=== PATIENT | male | born 1950 | race Caucasian/White ===

== ENCOUNTER → 2019-03-06 13:43 | Outpatient (CLI) | payer MEDICARE, OTHER, SELFPAY ==
--- NOTE | 2019-03-06 | DI.US.S_ITS ---
PROCEDURE: US ABD AORTA ANEURYSM SCREEN INDICATIONS: SCREEN TECHNIQUE: Real time scanning was performed of the aorta and iliac arteries, with image documentation. COMPARISON: None. FINDINGS: Abdominal aorta: The proximal abdominal aorta cannot be evaluated as the aorta was obscured by overlying bowel gas. Imaged mid-aorta measures 2.0 cm anteroposterior by 1.8 cm transverse. Imaged distal aortic diameter is 1.5 cm anteroposterior Iliac arteries: Imaged proximal right common iliac artery measures 0.9 cm anteroposterior. Imaged proximal left common iliac artery measures 1.0 cm anteroposterior. IMPRESSION: The proximal abdominal aorta could not be evaluated by ultrasound as the aorta was obscured by overlying bowel gas. The remainder of the imaged mid and distal abdominal aorta, as well as the bilateral proximal common iliac arteries, demonstrate no evidence of aneurysm by ultrasound. Consider CT if there is continued clinical concern. Dictated by: Rojelio José M.D. on 03/06/2019 at 15:55 Approved by: Rojelio José M.D. on 03/06/2019 at 17:04
== END ==
PROVIDERS: PCP Internal Medicine; Visit Provider Internal Medicine
DX: Z13.6 Encounter for screening for cardiovascular disorders (principal)
CPT/HCPCS: 76706

== ENCOUNTER 2021-02-21 14:30 | Outpatient (RCR) | payer MEDICARE, OTHER, SELFPAY ==
--- NOTE | 2020-11-03 18:32 | PT.OIE ---
Current Diagnoses Other chronic pain (11/03/20) Pain in left shoulder (11/03/20) Abnormal posture (11/03/20) Weakness (11/03/20) Visit Care Team Role Provider Type Noel Eddy MD Primary Care Provider Non-Staff Specialty: Family Practice Address: [address] [place] [address], [id number] Email: Attending Provider Referring Provider Specialty: Address: Phone: Fax: Email: Physical Therapy Initial Evaluation PT-OP-A Visit Information Start: 11/02/20 18:24 Freq: Status: Active Protocol: Document 11/03/20 16:51 [facility] (Rec: 11/03/20 18:28 [facility] [id number]) Out-Patient Physical Therapy Visit Information Visit Information Visit Type Initial Evaluation Visit Start Time 16:51 Visit Stop Time 17:45 Total Visit Minutes 54 Visit Number 1 Number of HARP ACTION ASSEMBLER Visits 0 PT-OP-B Current Condition Start: 11/02/20 18:24 Freq: Status: Active Protocol: Document 11/03/20 16:51 [facility] (Rec: 11/03/20 18:28 [facility] [id number]) Current Condition History of Current Condition Onset Date May Current Complaints L shoulder History of Current Condition Pt was sent here by another therapist in [place] d/t mar. Pt injured his shoulder during a ski fall. He fell backwards d/t going up something that was too high, fell to his backwards to his back and slid down hill and his L pole got caught on a branch and flipped him around. His wrist strap came off his wrist and his elbow was sore and still a little sore after and shoulder was sore. he skiied another 1.5 hours because he could pull. He said crossing his arms when L arm is on top butr not when its on the bottom. He is going to be getting a MRI. 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 He did PT and it got better. this was about 25 years ago. He L AC about 50 years ago. No shoulder pain in L side until he did the ski injury . R side has has RC trimming & a little cartilage stuff and take off part of acromion. Prior Treatments and Tests PT for a few months Future Testing and Treatments Planned MRI not yet scheduled Treatment Goals Patient/Caregiver Goals shoulder to stop hurting, be able to lift arm comfortably PT-OP-C Subjective Start: 11/02/20 18:24 Freq: Status: Active Protocol: Document 11/03/20 16:51 [facility] (Rec: 11/03/20 18:28 [facility] [id number]) Patient Questionnaires Quick Dash- Upper Extremity Quick Dash UE Score 31.8 OP-PT Pain Assessment Location L shoulder Pain Location Details L scap along spine, internal Intensity 2 Scale Used 7 w/movement Description Aching,Stabbing,With Movement Frequency Daily Pain Duration sharp part slowly goes away then it aches more than its norm Radiating Location pain in post lat brachium Pain Aggravating Factors ADL's,Lifting Other Pain Aggravating Factors pull arm back90/90 ER, in AM Pain Alleviating Factors Heat,Inactivity PT-OP-F Manual Assessment Start: 11/02/20 18:24 Freq: Status: Active Protocol: Document 11/03/20 16:51 [facility] (Rec: 11/03/20 18:28 [facility] [id number]) Manual Assessments Soft Tissue Assessment Soft Tissue Mobility Assessment L pec, UT, supraspinatsu and biceps tendon L PT-OP-J Posture/Palpation/Skin Start: 11/02/20 18:24 Freq: Status: Active Protocol: Document 11/03/20 16:51 [facility] (Rec: 11/03/20 18:28 [facility] [id number]) Posture Evaluation Comments Posture Comments inc kyphosis w/fwd head & shoudlers PT-OP-K Range of Motion Start: 11/02/20 18:24 Freq: Status: Active Protocol: Document 11/03/20 16:51 [facility] (Rec: 11/03/20 18:28 [facility] [id number]) Shoulder Goniometric Range of Motion Shoulder Right Active Flexion 150 Extension 51 Abduction 162 External Rotation at 90 degrees 74 Abduction External Rotation at 0 degrees Abduction 50 Internal Rotation Behind Back (text) T10 Left Active Flexion 128 Extension 41 Abduction 131 External Rotation at 90 degrees 57 Abduction External Rotation at 0 degrees Abduction 21 Internal Rotation Behind Back (text) L2 PT-OP-L Special Tests Start: 11/02/20 18:24 Freq: Status: Active Protocol: Document 11/03/20 16:51 [facility] (Rec: 11/03/20 18:28 [facility] [id number]) Special Tests Shoulder Special Tests Sulcus Test Results neg L Gonzalez Charly Impingement Test Results positive L Empty Can Test Results positive L AC Joint Compression Test Results mild pain L PT-OP-M Strength Start: 11/02/20 18:24 Freq: Status: Active Protocol: Document 11/03/20 16:51 [facility] (Rec: 11/03/20 18:28 [facility] [id number]) Shoulder Strength Shoulder Manual Muscle Testing Right Flexion 5 Normal Extension 5 Normal Abduction (C5) 5 Normal External Rotation 5 Normal Internal Rotation 5 Normal Horizontal Abduction 5 Normal Horizontal Adduction 5 Normal Left Flexion 4 Good Extension 4+ Good+ Abduction (C5) 4+ Good+ External Rotation 3+ Fair+ Internal Rotation 4+ Good+ Horizontal Abduction 4 Good Horizontal Adduction 4 Good PT-OP-Q Treatments Start: 11/02/20 18:24 Freq: Status: Active Protocol: Document 11/03/20 16:51 [facility] (Rec: 11/03/20 18:28 [facility] [id number]) Self-Care/Home Management Treatment Education Other Education discussed PT plan that since already done PT without much success for dec pain, plan tot try 1x/week to focus on manual to dec pain and edu re: impingment syndrome and shoulder mechanics & mm. Use of model also. Edu re: 1 pillow only under neck when sleeping or only enough to keep head in neutral. Discussed likelihood of supraspinatus involvement based on testing PT-OP-T Assessment and Plan Start: 11/02/20 18:24 Freq: Status: Active Protocol: Document 11/03/20 16:51 [facility] (Rec: 11/03/20 18:28 [facility] [id number]) Physical Therapy Assessment Rehab Potential Rehabilitation Potential Fair Evaluation Complexity Number of Personal Factors/Comorbidities 3 or More Number of Body Systems Impaired 4 or More Clinical Presentation at Evaluation Evolving Impairments Impairments Activity Tolerance,Functional Activities,Functional Mobility ,Pain,Posture,ROM,Soft Tissue Mobility,Strength Goals quickdash Impairment 31.8 Correction Goal (LTG) Pt will imrpove score to no greater than 10 to show improved functional ability LTG Duration 01/04/21 activies Short Term Goal (STG) Pt will be able to wake up without signficiant pain. STG Duration 12/04/20 Correction Goal (LTG) Pt will be able to do all ADLs like dressing w/o inc pain. LTG Duration 01/04/21 strength Short Term Goal (STG) pt will be indep w/appropriate HEP for posture and stability . STG Duration 12/04/20 Entry Level Marketing Assistant Goal (LTG) pt will have at 5/5 MMT for all planes for L shoulder along w/at least 4/5 EFT to show imrpoved stability in order to allow full return to activites without pain. LTG Duration 01/04/21 ROM Short Term Goal (STG) Pt will improve ROM in all planes by 10 deg. STG Duration 12/04/20 Entry Level Marketing Assistant Goal (LTG) pt will have full ROM as compared to R shoulder in order to allow pt to do typical overhead activties and ADLs. LTG Duration 01/04/21 Assessment Summary Assessment Pt presents w/L shoulder pain after an injury skiing 5 months ago where his arm was pulled by the his pole contacting a tree after falling. 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 He is getting MRI soon which will give further imaging as he has tried PT already w/o significant improvement. He would benefit from skilled PT to work on manual treatment and appropriate exercise prescription in order to dec his pain along w/improve his mobility and posture. Physical Therapy Plan Frequency and Duration Frequency of Treatment 1-2x/week Duration of Treatment 2 months Plan of Care Start Date 11/03/20 Plan of Care End Date 01/04/21 Therapeutic Interventions Therapeutic Interventions Aquatic Therapy,Home Exercise Program,Joint Mobilizations, Manual Therapy,Neuromuscular Re-education,Patient/Caregiver Education,Self-Care/Home Management,Soft Tissue Mobilization,Taping, Therapeutic Activities, Therapeutic Exercises Modalities Cold Pack/Ice Massage,Electric Stimulation,Hot Packs, Infrared Therapy,Ultrasound Next Visit Focus/Plan Next Note Type Treatment Note Next Visit Plan sleep posture, PNF, manual for ribcage mobility, manual for shoulder joint ROM
--- NOTE | 2020-11-03 18:32 | PT.OPPOC ---
Physical, Occupational & Speech Therapy At [facility] Current Diagnoses Other chronic pain (11/03/20) Pain in left shoulder (11/03/20) Abnormal posture (11/03/20) Weakness (11/03/20) Visit Care Team Role Provider Type Noel Eddy MD Primary Care Provider Non-Staff Specialty: [facility] Address: [address] [place] [address], [id number] Email: Attending Provider Referring Provider Specialty: Address: Phone: Fax: Email: Plan Of Care PT-OP-T Assessment and Plan Start: 11/02/20 18:24 Freq: Status: Active Protocol: Document 11/03/20 16:51 [facility] (Rec: 11/03/20 18:28 [facility] [id number]) Physical Therapy Assessment Rehab Potential Rehabilitation Potential Fair Evaluation Complexity Number of Personal Factors/Comorbidities 3 or More Number of Body Systems Impaired 4 or More Clinical Presentation at Evaluation Evolving Impairments Impairments Activity Tolerance,Functional Activities,Functional Mobility ,Pain,Posture,ROM,Soft Tissue Mobility,Strength Goals quickdash Impairment 31.8 Gang Rider Goal (LTG) Pt will imrpove score to no greater than 10 to show improved functional ability LTG Duration 01/04/21 activies Short Term Goal (STG) Pt will be able to wake up without signficiant pain. STG Duration 12/04/20 Gang Rider Goal (LTG) Pt will be able to do all ADLs like dressing w/o inc pain. LTG Duration 01/04/21 strength Short Term Goal (STG) pt will be indep w/appropriate HEP for posture and stability . STG Duration 12/04/20 Gang Rider Goal (LTG) pt will have at 5/5 MMT for all planes for L shoulder along w/at least 4/5 EFT to show imrpoved stability in order to allow full return to activites without pain. LTG Duration 01/04/21 ROM Short Term Goal (STG) Pt will improve ROM in all planes by 10 deg. STG Duration 12/04/20 Gang Rider Goal (LTG) pt will have full ROM as compared to R shoulder in order to allow pt to do typical overhead activties and ADLs. LTG Duration 01/04/21 Assessment Summary Assessment Pt presents w/L shoulder pain after an injury skiing 5 months ago where his arm was pulled by the his pole contacting a tree after falling. 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 He is getting MRI soon which will give further imaging as he has tried PT already w/o significant improvement. He would benefit from skilled PT to work on manual treatment and appropriate exercise prescription in order to dec his pain along w/improve his mobility and posture. Physical Therapy Plan Frequency and Duration Frequency of Treatment 1-2x/week Duration of Treatment 2 months Plan of Care Start Date 11/03/20 Plan of Care End Date 01/04/21 Therapeutic Interventions Therapeutic Interventions Aquatic Therapy,Home Exercise Program,Joint Mobilizations, Manual Therapy,Neuromuscular Re-education,Patient/Caregiver Education,Self-Care/Home Management,Soft Tissue Mobilization,Taping, Therapeutic Activities, Therapeutic Exercises Modalities Cold Pack/Ice Massage,Electric Stimulation,Hot Packs, Infrared Therapy,Ultrasound Next Visit Focus/Plan Next Note Type Treatment Note Next Visit Plan sleep posture, PNF, manual for ribcage mobility, manual for shoulder joint ROM Plan of Care Dates Plan of Care Start Date 11/03/20 Plan of Care End Date 01/04/21 Electronically Signed by: Cristina Bauman, PT 11/03/20 7216 Please Sign and Return: I have reviewed this Plan of Care and certify that the skilled therapy services above are required to meet the patient?s needs. Physician Signature Date Printed Name and Credentials Clinical Instructor Signature Printed Name and Credentials
--- NOTE | 2020-11-08 18:02 | PT.OTN ---
Current Diagnoses Other chronic pain (11/08/20) Pain in left shoulder (11/08/20) Abnormal posture (11/08/20) Weakness (11/08/20) Physical Therapy Treatment Note PT-OP-A Visit Information Start: 11/02/20 18:24 Freq: Status: Active Protocol: Document 11/08/20 14:34 [facility] (Rec: 11/08/20 18:02 [facility] [id number]) Out-Patient Physical Therapy Visit Information Visit Information Visit Type Treatment Note Visit Start Time 14:32 Visit Stop Time 15:15 Total Visit Minutes 43 Visit Number 2 Number of VACUUM CLOSING MACHINE OPERATOR Visits 0 PT-OP-B Current Condition Start: 11/02/20 18:24 Freq: Status: Active Protocol: Document 11/03/20 16:51 [facility] (Rec: 11/03/20 18:28 [facility] [id number]) Current Condition History of Current Condition Onset Date May Current Complaints L shoulder History of Current Condition Pt was sent here by another therapist in [place] d/t mar. Pt injured his shoulder during a ski fall. He fell backwards d/t going up something that was too high, fell to his backwards to his back and slid down hill and his L pole got caught on a branch and flipped him around. His wrist strap came off his wrist and his elbow was sore and still a little sore after and shoulder was sore. he skiied another 1.5 hours because he could pull. He said crossing his arms when L arm is on top butr not when its on the bottom. He is going to be getting a MRI. 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 He did PT and it got better. this was about 25 years ago. He L AC about 50 years ago. No shoulder pain in L side until he did the ski injury . R side has has RC trimming & a little cartilage stuff and take off part of acromion. Prior Treatments and Tests PT for a few months Future Testing and Treatments Planned MRI not yet scheduled Treatment Goals Patient/Caregiver Goals shoulder to stop hurting, be able to lift arm comfortably PT-OP-C Subjective Start: 11/02/20 18:24 Freq: Status: Active Protocol: Document 11/08/20 14:34 [facility] (Rec: 11/08/20 18:02 [facility] [id number]) OP-PT Subjective Patient Comments Patient Comments Pt reports no change since eval PT-OP-F Manual Assessment Start: 11/02/20 18:24 Freq: Status: Active Protocol: Document 11/03/20 16:51 [facility] (Rec: 11/03/20 18:28 [facility] [id number]) Manual Assessments Soft Tissue Assessment Soft Tissue Mobility Assessment L pec, UT, supraspinatsu and biceps tendon L PT-OP-J Posture/Palpation/Skin Start: 11/02/20 18:24 Freq: Status: Active Protocol: Document 11/03/20 16:51 [facility] (Rec: 11/03/20 18:28 [facility] [id number]) Posture Evaluation Comments Posture Comments inc kyphosis w/fwd head & shoudlers PT-OP-K Range of Motion Start: 11/02/20 18:24 Freq: Status: Active Protocol: Document 11/03/20 16:51 [facility] (Rec: 11/03/20 18:28 [facility] [id number]) Shoulder Goniometric Range of Motion Shoulder Right Active Flexion 150 Extension 51 Abduction 162 External Rotation at 90 degrees 74 Abduction External Rotation at 0 degrees Abduction 50 Internal Rotation Behind Back (text) T10 Left Active Flexion 128 Extension 41 Abduction 131 External Rotation at 90 degrees 57 Abduction External Rotation at 0 degrees Abduction 21 Internal Rotation Behind Back (text) L2 PT-OP-L Special Tests Start: 11/02/20 18:24 Freq: Status: Active Protocol: Document 11/03/20 16:51 [facility] (Rec: 11/03/20 18:28 [facility] [id number]) Special Tests Shoulder Special Tests Sulcus Test Results neg L Gonzalez Charly Impingement Test Results positive L Empty Can Test Results positive L AC Joint Compression Test Results mild pain L PT-OP-M Strength Start: 11/02/20 18:24 Freq: Status: Active Protocol: Document 11/03/20 16:51 [facility] (Rec: 11/03/20 18:28 [facility] [id number]) Shoulder Strength Shoulder Manual Muscle Testing Right Flexion 5 Normal Extension 5 Normal Abduction (C5) 5 Normal External Rotation 5 Normal Internal Rotation 5 Normal Horizontal Abduction 5 Normal Horizontal Adduction 5 Normal Left Flexion 4 Good Extension 4+ Good+ Abduction (C5) 4+ Good+ External Rotation 3+ Fair+ Internal Rotation 4+ Good+ Horizontal Abduction 4 Good Horizontal Adduction 4 Good PT-OP-Q Treatments Start: 11/02/20 18:24 Freq: Status: Active Protocol: Document 11/08/20 14:34 [facility] (Rec: 11/08/20 18:02 [facility] [id number]) Therapeutic Exercises Sidelying Exercises open book Sidelying Exercise Name w/arm at side Side bilateral Reps/Minutes 10 Therapeutic Activity Therapeutic Activity sleep posture Comments s/l and supine options w/ pillows and towels for support Manual Therapy Treatment Soft Tissue Mobilization lats Body Location L lats & teres Mobilization Type Rolling,Strumming Intensity/Depth Moderate UT, LS, Scalenes, SCM Body Location L Mobilization Type Rolling,Strumming,Sustained Pressure Intensity/Depth Moderate Comments w/ant elevation/post dep Joint Mobilizations SC Joint L Direction INf FM AC Direction PA FM tspine Joint T4 R transverse glide FM ribs Joint 7 cadual FM PT-OP-T Assessment and Plan Start: 11/02/20 18:24 Freq: Status: Active Protocol: Document 11/08/20 14:34 [facility] (Rec: 11/08/20 18:02 [facility] [id number]) Physical Therapy Assessment Goals quickdash Impairment 31.8 Senior Credit Officer Goal (LTG) Pt will imrpove score to no greater than 10 to show improved functional ability LTG Duration 01/04/21 activies Short Term Goal (STG) Pt will be able to wake up without signficiant pain. STG Duration 12/04/20 Mcc Goal (LTG) Pt will be able to do all ADLs like dressing w/o inc pain. LTG Duration 01/04/21 strength Short Term Goal (STG) pt will be indep w/appropriate HEP for posture and stability . STG Duration 12/04/20 Mcc Goal (LTG) pt will have at 5/5 MMT for all planes for L shoulder along w/at least 4/5 EFT to show imrpoved stability in order to allow full return to activites without pain. LTG Duration 01/04/21 ROM Short Term Goal (STG) Pt will improve ROM in all planes by 10 deg. STG Duration 12/04/20 Mcc Goal (LTG) pt will have full ROM as compared to R shoulder in order to allow pt to do typical overhead activties and ADLs. LTG Duration 01/04/21 Assessment Summary Assessment Pt reported feeling looser after manual treatment. He had improved ability to scap depress after manual treatment . He has signifciant ribcage limitations that likely affect his ability to have scap glide properly during overhead motions which inc pain. Physical Therapy Plan Frequency and Duration Frequency of Treatment 1-2x/week Duration of Treatment 2 months Plan of Care Start Date 11/03/20 Plan of Care End Date 01/04/21 Next Visit Focus/Plan Next Note Type Treatment Note Next Visit Plan PNF, manual for ribcage mobility, manual for shoulder joint ROM
--- NOTE | 2020-11-17 17:51 | PT.OTN ---
Current Diagnoses Other chronic pain (11/17/20) Pain in left shoulder (11/17/20) Abnormal posture (11/17/20) Weakness (11/17/20) Physical Therapy Treatment Note PT-OP-A Visit Information Start: 11/02/20 18:24 Freq: Status: Active Protocol: Document 11/17/20 17:46 [facility] (Rec: 11/17/20 17:51 [facility] [id number]) Out-Patient Physical Therapy Visit Information Visit Information Visit Type Treatment Note Visit Start Time 16:44 Visit Stop Time 17:43 Total Visit Minutes 59 Visit Number 3 Number of PUBLIC SERVICES ASSISTANT Visits 0 PT-OP-B Current Condition Start: 11/02/20 18:24 Freq: Status: Active Protocol: Document 11/03/20 16:51 [facility] (Rec: 11/03/20 18:28 [facility] [id number]) Current Condition History of Current Condition Onset Date May Current Complaints L shoulder History of Current Condition Pt was sent here by another therapist in [place] d/t mar. Pt injured his shoulder during a ski fall. He fell backwards d/t going up something that was too high, fell to his backwards to his back and slid down hill and his L pole got caught on a branch and flipped him around. His wrist strap came off his wrist and his elbow was sore and still a little sore after and shoulder was sore. he skiied another 1.5 hours because he could pull. He said crossing his arms when L arm is on top butr not when its on the bottom. He is going to be getting a MRI. 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 He did PT and it got better. this was about 25 years ago. He L AC about 50 years ago. No shoulder pain in L side until he did the ski injury . R side has has RC trimming & a little cartilage stuff and take off part of acromion. Prior Treatments and Tests PT for a few months Future Testing and Treatments Planned MRI not yet scheduled Treatment Goals Patient/Caregiver Goals shoulder to stop hurting, be able to lift arm comfortably PT-OP-C Subjective Start: 11/02/20 18:24 Freq: Status: Active Protocol: Document 11/17/20 17:46 [facility] (Rec: 11/17/20 17:51 [facility] [id number]) OP-PT Subjective Patient Comments Patient Comments pt reports he was sore after last session but the next day felt looser PT-OP-F Manual Assessment Start: 11/02/20 18:24 Freq: Status: Active Protocol: Document 11/03/20 16:51 [facility] (Rec: 11/03/20 18:28 [facility] [id number]) Manual Assessments Soft Tissue Assessment Soft Tissue Mobility Assessment L pec, UT, supraspinatsu and biceps tendon L PT-OP-J Posture/Palpation/Skin Start: 11/02/20 18:24 Freq: Status: Active Protocol: Document 11/03/20 16:51 [facility] (Rec: 11/03/20 18:28 [facility] [id number]) Posture Evaluation Comments Posture Comments inc kyphosis w/fwd head & shoudlers PT-OP-K Range of Motion Start: 11/02/20 18:24 Freq: Status: Active Protocol: Document 11/03/20 16:51 [facility] (Rec: 11/03/20 18:28 [facility] [id number]) Shoulder Goniometric Range of Motion Shoulder Right Active Flexion 150 Extension 51 Abduction 162 External Rotation at 90 degrees 74 Abduction External Rotation at 0 degrees Abduction 50 Internal Rotation Behind Back (text) T10 Left Active Flexion 128 Extension 41 Abduction 131 External Rotation at 90 degrees 57 Abduction External Rotation at 0 degrees Abduction 21 Internal Rotation Behind Back (text) L2 PT-OP-L Special Tests Start: 11/02/20 18:24 Freq: Status: Active Protocol: Document 11/03/20 16:51 [facility] (Rec: 11/03/20 18:28 [facility] [id number]) Special Tests Shoulder Special Tests Sulcus Test Results neg L Gonzalez Charly Impingement Test Results positive L Empty Can Test Results positive L AC Joint Compression Test Results mild pain L PT-OP-M Strength Start: 11/02/20 18:24 Freq: Status: Active Protocol: Document 11/03/20 16:51 [facility] (Rec: 11/03/20 18:28 [facility] [id number]) Shoulder Strength Shoulder Manual Muscle Testing Right Flexion 5 Normal Extension 5 Normal Abduction (C5) 5 Normal External Rotation 5 Normal Internal Rotation 5 Normal Horizontal Abduction 5 Normal Horizontal Adduction 5 Normal Left Flexion 4 Good Extension 4+ Good+ Abduction (C5) 4+ Good+ External Rotation 3+ Fair+ Internal Rotation 4+ Good+ Horizontal Abduction 4 Good Horizontal Adduction 4 Good PT-OP-Q Treatments Start: 11/02/20 18:24 Freq: Status: Active Protocol: Document 11/17/20 17:46 [facility] (Rec: 11/17/20 17:51 [facility] [id number]) Therapeutic Exercises Sidelying Exercises open book Sidelying Exercise Name w/arm at sidex 5 ; w/Habd x12 Side left Standing Exercises wall posture Standing Exercise Name roll up w/shoulder ext Side bilateral Reps/Minutes 8 roll ups and 2 holds x1 min Manual Therapy Treatment Soft Tissue Mobilization lats Body Location L lats & teres & post delt & infraspinatus Mobilization Type Rolling,Strumming Intensity/Depth Moderate UT, LS, Scalenes, SCM Body Location L Mobilization Type Rolling,Strumming,Sustained Pressure Intensity/Depth Moderate Comments w/ant elevation/post dep Joint Mobilizations scapthoracic Joint L Direction inf & med glide SC Joint L Direction INf FM AC Direction gapping FM tspine Joint T4 R transverse glide & UPA R FM ribs Joint 1& 2& 7 cadual FM PT-OP-T Assessment and Plan Start: 11/02/20 18:24 Freq: Status: Active Protocol: Document 11/17/20 17:46 [facility] (Rec: 11/17/20 17:51 [facility] [id number]) Physical Therapy Assessment Goals quickdash Impairment 31.8 Lead Slot Technician Goal (LTG) Pt will imrpove score to no greater than 10 to show improved functional ability LTG Duration 01/04/21 activies Short Term Goal (STG) Pt will be able to wake up without signficiant pain. STG Duration 12/04/20 Snf Goal (LTG) Pt will be able to do all ADLs like dressing w/o inc pain. LTG Duration 01/04/21 strength Short Term Goal (STG) pt will be indep w/appropriate HEP for posture and stability . STG Duration 12/04/20 Lead Slot Technician Goal (LTG) pt will have at 5/5 MMT for all planes for L shoulder along w/at least 4/5 EFT to show imrpoved stability in order to allow full return to activites without pain. LTG Duration 01/04/21 ROM Short Term Goal (STG) Pt will improve ROM in all planes by 10 deg. STG Duration 12/04/20 Lead Slot Technician Goal (LTG) pt will have full ROM as compared to R shoulder in order to allow pt to do typical overhead activties and ADLs. LTG Duration 01/04/21 Assessment Summary Assessment Pt had imrpoved PROM into flex and 90/90 ER w/manual treatment w/significant imrpovement into scap depression and retraction. Physical Therapy Plan Frequency and Duration Frequency of Treatment 1-2x/week Duration of Treatment 2 months Plan of Care Start Date 11/03/20 Plan of Care End Date 01/04/21 Next Visit Focus/Plan Next Note Type Treatment Note Next Visit Plan PNF, manual for ribcage mobility, manual for shoulder joint ROM
--- NOTE | 2020-12-01 15:34 | PT.OTN ---
Current Diagnoses Other chronic pain (12/01/20) Pain in left shoulder (12/01/20) Abnormal posture (12/01/20) Weakness (12/01/20) Physical Therapy Treatment Note PT-OP-A Visit Information Start: 11/02/20 18:24 Freq: Status: Active Protocol: Document 12/01/20 15:25 [facility] (Rec: 12/01/20 15:34 [facility] [id number]) Out-Patient Physical Therapy Visit Information Visit Information Visit Type Treatment Note Visit Start Time 11:18 Visit Stop Time 12:00 Total Visit Minutes 42 Visit Number 4 Number of SOLID TIRE FINISHER Visits 0 PT-OP-B Current Condition Start: 11/02/20 18:24 Freq: Status: Active Protocol: Document 11/03/20 16:51 [facility] (Rec: 11/03/20 18:28 [facility] [id number]) Current Condition History of Current Condition Onset Date May Current Complaints L shoulder History of Current Condition Pt was sent here by another therapist in [place] d/t mar. Pt injured his shoulder during a ski fall. He fell backwards d/t going up something that was too high, fell to his backwards to his back and slid down hill and his L pole got caught on a branch and flipped him around. His wrist strap came off his wrist and his elbow was sore and still a little sore after and shoulder was sore. he skiied another 1.5 hours because he could pull. He said crossing his arms when L arm is on top butr not when its on the bottom. He is going to be getting a MRI. 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 He did PT and it got better. this was about 25 years ago. He L AC about 50 years ago. No shoulder pain in L side until he did the ski injury . R side has has RC trimming & a little cartilage stuff and take off part of acromion. Prior Treatments and Tests PT for a few months Future Testing and Treatments Planned MRI not yet scheduled Treatment Goals Patient/Caregiver Goals shoulder to stop hurting, be able to lift arm comfortably PT-OP-C Subjective Start: 11/02/20 18:24 Freq: Status: Active Protocol: Document 12/01/20 15:25 [facility] (Rec: 12/01/20 15:34 [facility] [id number]) OP-PT Subjective Patient Comments Patient Comments Pt reports MRI report said possible labral tear and MD thinks possibly frozen shoulder. MD thinks his range has dec since last seeing him. Pt feels like since starting w/this therapist range has imrpoved. He will be getting a cortizone shot and saline flush by his MD PT-OP-F Manual Assessment Start: 11/02/20 18:24 Freq: Status: Active Protocol: Document 11/03/20 16:51 [facility] (Rec: 11/03/20 18:28 [facility] [id number]) Manual Assessments Soft Tissue Assessment Soft Tissue Mobility Assessment L pec, UT, supraspinatsu and biceps tendon L PT-OP-J Posture/Palpation/Skin Start: 11/02/20 18:24 Freq: Status: Active Protocol: Document 11/03/20 16:51 [facility] (Rec: 11/03/20 18:28 [facility] [id number]) Posture Evaluation Comments Posture Comments inc kyphosis w/fwd head & shoudlers PT-OP-K Range of Motion Start: 11/02/20 18:24 Freq: Status: Active Protocol: Document 11/03/20 16:51 [facility] (Rec: 11/03/20 18:28 [facility] [id number]) Shoulder Goniometric Range of Motion Shoulder Right Active Flexion 150 Extension 51 Abduction 162 External Rotation at 90 degrees 74 Abduction External Rotation at 0 degrees Abduction 50 Internal Rotation Behind Back (text) T10 Left Active Flexion 128 Extension 41 Abduction 131 External Rotation at 90 degrees 57 Abduction External Rotation at 0 degrees Abduction 21 Internal Rotation Behind Back (text) L2 PT-OP-L Special Tests Start: 11/02/20 18:24 Freq: Status: Active Protocol: Document 11/03/20 16:51 [facility] (Rec: 11/03/20 18:28 [facility] [id number]) Special Tests Shoulder Special Tests Sulcus Test Results neg L Gonzalez Charly Impingement Test Results positive L Empty Can Test Results positive L AC Joint Compression Test Results mild pain L PT-OP-M Strength Start: 11/02/20 18:24 Freq: Status: Active Protocol: Document 11/03/20 16:51 [facility] (Rec: 11/03/20 18:28 [facility] [id number]) Shoulder Strength Shoulder Manual Muscle Testing Right Flexion 5 Normal Extension 5 Normal Abduction (C5) 5 Normal External Rotation 5 Normal Internal Rotation 5 Normal Horizontal Abduction 5 Normal Horizontal Adduction 5 Normal Left Flexion 4 Good Extension 4+ Good+ Abduction (C5) 4+ Good+ External Rotation 3+ Fair+ Internal Rotation 4+ Good+ Horizontal Abduction 4 Good Horizontal Adduction 4 Good PT-OP-Q Treatments Start: 11/02/20 18:24 Freq: Status: Active Protocol: Document 12/01/20 15:25 [facility] (Rec: 12/01/20 15:34 [facility] [id number]) Therapeutic Exercises Sidelying Exercises open book Sidelying Exercise Name arm straight Side left Reps/Minutes 15 Sitting Exercises pullys Sitting Exercise Name flex, abd, scaption , IR Behind back standing Side bilateral Reps/Minutes 15 ea Comments comfortable range and avoid scap elevation Standing Exercises wall posture Standing Exercise Name roll up w/shoulder ext Side bilateral Reps/Minutes 6roll ups and 2 holds x1 min Manual Therapy Treatment Joint Mobilizations GH Direction post glide FM, inf glide FM, distraction FM, lat gappign FM PT-OP-T Assessment and Plan Start: 11/02/20 18:24 Freq: Status: Active Protocol: Document 12/01/20 15:25 [facility] (Rec: 12/01/20 15:34 [facility] [id number]) Physical Therapy Assessment Goals quickdash Impairment 31.8 Mcc Goal (LTG) Pt will imrpove score to no greater than 10 to show improved functional ability LTG Duration 01/04/21 activies Short Term Goal (STG) Pt will be able to wake up without signficiant pain. STG Duration 12/04/20 Animal Assistant Goal (LTG) Pt will be able to do all ADLs like dressing w/o inc pain. LTG Duration 01/04/21 strength Short Term Goal (STG) pt will be indep w/appropriate HEP for posture and stability . STG Duration 12/04/20 Animal Assistant Goal (LTG) pt will have at 5/5 MMT for all planes for L shoulder along w/at least 4/5 EFT to show imrpoved stability in order to allow full return to activites without pain. LTG Duration 01/04/21 ROM Short Term Goal (STG) Pt will improve ROM in all planes by 10 deg. STG Duration 12/04/20 Animal Assistant Goal (LTG) pt will have full ROM as compared to R shoulder in order to allow pt to do typical overhead activties and ADLs. LTG Duration 01/04/21 Assessment Summary Assessment pt requried cues w/all exercises today especially w/ wall posture and openbook exercise. Pt educated to stay in comrotable range w/will exercise and gradually inc as tolerated. Physical Therapy Plan Frequency and Duration Frequency of Treatment 1-2x/week Duration of Treatment 2 months Plan of Care Start Date 11/03/20 Plan of Care End Date 01/04/21 Next Visit Focus/Plan Next Note Type Treatment Note Next Visit Plan PNF, manual for ribcage mobility, manual for shoulder joint ROM
--- NOTE | 2020-12-08 18:47 | PT.OTN ---
Current Diagnoses Other chronic pain (12/08/20) Pain in left shoulder (12/08/20) Abnormal posture (12/08/20) Weakness (12/08/20) Physical Therapy Treatment Note PT-OP-A Visit Information Start: 11/02/20 18:24 Freq: Status: Active Protocol: Document 12/08/20 16:10 [facility] (Rec: 12/08/20 18:47 [facility] [id number]) Out-Patient Physical Therapy Visit Information Visit Information Visit Type Progress Note Visit Note 05/08 Visit Start Time 16:07 Visit Stop Time 16:50 Total Visit Minutes 43 Visit Number 5 Number of SIMULATION SPECIALIST Visits 0 PT-OP-B Current Condition Start: 11/02/20 18:24 Freq: Status: Active Protocol: Document 11/03/20 16:51 [facility] (Rec: 11/03/20 18:28 [facility] [id number]) Current Condition History of Current Condition Onset Date May Current Complaints L shoulder History of Current Condition Pt was sent here by another therapist in [place] d/t mar. Pt injured his shoulder during a ski fall. He fell backwards d/t going up something that was too high, fell to his backwards to his back and slid down hill and his L pole got caught on a branch and flipped him around. His wrist strap came off his wrist and his elbow was sore and still a little sore after and shoulder was sore. he skiied another 1.5 hours because he could pull. He said crossing his arms when L arm is on top butr not when its on the bottom. He is going to be getting a MRI. 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 He did PT and it got better. this was about 25 years ago. He L AC about 50 years ago. No shoulder pain in L side until he did the ski injury . R side has has RC trimming & a little cartilage stuff and take off part of acromion. Prior Treatments and Tests PT for a few months Future Testing and Treatments Planned MRI not yet scheduled Treatment Goals Patient/Caregiver Goals shoulder to stop hurting, be able to lift arm comfortably PT-OP-C Subjective Start: 11/02/20 18:24 Freq: Status: Active Protocol: Document 12/08/20 16:10 [facility] (Rec: 12/08/20 18:47 [facility] [id number]) OP-PT Subjective Patient Comments Patient Comments Pt reports signfiicant improvement in range over past couple weeks he feels and ovearll dec in pain. NOtes he doesn't have pain upon wakng anymore. PT-OP-F Manual Assessment Start: 11/02/20 18:24 Freq: Status: Active Protocol: Document 11/03/20 16:51 [facility] (Rec: 11/03/20 18:28 [facility] [id number]) Manual Assessments Soft Tissue Assessment Soft Tissue Mobility Assessment L pec, UT, supraspinatsu and biceps tendon L PT-OP-J Posture/Palpation/Skin Start: 11/02/20 18:24 Freq: Status: Active Protocol: Document 11/03/20 16:51 [facility] (Rec: 11/03/20 18:28 [facility] [id number]) Posture Evaluation Comments Posture Comments inc kyphosis w/fwd head & shoudlers PT-OP-K Range of Motion Start: 11/02/20 18:24 Freq: Status: Active Protocol: Document 12/08/20 16:10 [facility] (Rec: 12/08/20 18:47 [facility] [id number]) Shoulder Goniometric Range of Motion Shoulder Left Active Flexion 138 Extension 54 Abduction 150 External Rotation at 90 degrees 58 Abduction External Rotation at 0 degrees Abduction 41 Internal Rotation Behind Back (text) T11 PT-OP-L Special Tests Start: 11/02/20 18:24 Freq: Status: Active Protocol: Document 11/03/20 16:51 [facility] (Rec: 11/03/20 18:28 [facility] [id number]) Special Tests Shoulder Special Tests Sulcus Test Results neg L Gonzalez Charly Impingement Test Results positive L Empty Can Test Results positive L AC Joint Compression Test Results mild pain L PT-OP-M Strength Start: 11/02/20 18:24 Freq: Status: Active Protocol: Document 12/08/20 16:10 [facility] (Rec: 12/08/20 18:47 [facility] [id number]) Shoulder Strength Shoulder Manual Muscle Testing Left Flexion 5 Normal Extension 5 Normal Abduction (C5) 5 Normal Adduction 5 Normal External Rotation 4 Good Internal Rotation 5 Normal Horizontal Abduction 5 Normal Horizontal Adduction 5 Normal PT-OP-Q Treatments Start: 11/02/20 18:24 Freq: Status: Active Protocol: Document 12/08/20 16:10 [facility] (Rec: 12/08/20 18:47 [facility] [id number]) Therapeutic Exercises Sidelying Exercises open book Sidelying Exercise Name arm straight Side left Reps/Minutes 15 Standing Exercises stretches Standing Exercise Name doorway arms ext stretch, 90/ 90 corner pec stretch Side bilateral Reps/Minutes 1 min ea wall posture Standing Exercise Name roll up w/shoulder ext progress to 90/90 ER Side bilateral Reps/Minutes 2x w/ ext holds 2x15 90/90 ER Manual Therapy Treatment Soft Tissue Mobilization UT, LS, Scalenes, SCM Body Location L Mobilization Type Rolling,Strumming,Sustained Pressure Intensity/Depth Moderate Comments w/ant elevation/post dep Joint Mobilizations GH Joint L Direction post FM scapthoracic Joint L Direction inf & med glide Self-Care/Home Management Treatment Education Other Education edu re: progress & edu re: HEP exercises , edu PT cannot instruct pt re: shot and he should call to talk to office. Discussed point of shot is to dec inflammation. Edu ROM & strenght has imrpoved since starting PT w/this therapist PT-OP-T Assessment and Plan Start: 11/02/20 18:24 Freq: Status: Active Protocol: Document 12/08/20 16:10 [facility] (Rec: 12/08/20 18:47 [facility] [id number]) Physical Therapy Assessment Goals quickdash Impairment 31.8 Cleaner Touch Up Worker Goal (LTG) Pt will imrpove score to no greater than 10 to show improved functional ability 12/08-nt LTG Duration 02/07/21 activies Short Term Goal (STG) Pt will be able to wake up without signficiant pain. STG Duration achieved Long-Term Goal (LTG) Pt will be able to do all ADLs like dressing w/o inc pain. 12/08-significantly dec pain LTG Duration 02/07/21 strength Short Term Goal (STG) pt will be indep w/appropriate HEP for posture and stability . STG Duration progressing as needd Long-Term Goal (LTG) pt will have at 5/5 MMT for all planes for L shoulder along w/at least 4/5 EFT to show imrpoved stability in order to allow full return to activites without pain 12/08-signficiant improvement. LTG Duration 02/07/21 ROM Short Term Goal (STG) Pt will improve ROM in all planes by 10 deg. STG Duration achieved Long-Term Goal (LTG) pt will have full ROM as compared to R shoulder in order to allow pt to do typical overhead activties and ADLs. 12/08-improve LTG Duration 02/07/21 Assessment Summary Assessment Pt is making excellent progrss over the past 4 treatment sessions and has shown signficiant inc in ROM, strength and functional ability. He cont to have dec ROM with pain w/resistance and some ADLs and would beneift from cont therapy to address this. Printouts given of HEP with review today to help pt with stretches to cont to inc ROM. Physical Therapy Plan Frequency and Duration Frequency of Treatment 1-2x/week Duration of Treatment 2 months Plan of Care Start Date 12/08/20 Plan of Care End Date 02/07/21 Therapeutic Interventions Therapeutic Interventions Aquatic Therapy,Home Exercise Program,Joint Mobilizations, Manual Therapy,Neuromuscular Re-education,Patient/Caregiver Education,Self-Care/Home Management,Soft Tissue Mobilization,Taping, Therapeutic Activities, Therapeutic Exercises Modalities Cold Pack/Ice Massage,Electric Stimulation,Hot Packs, Infrared Therapy,Ultrasound Next Visit Focus/Plan Next Note Type Treatment Note Next Visit Plan PNF, manual for ribcage mobility, manual for shoulder joint ROM
--- NOTE | 2020-12-08 18:48 | PT.OPPOC ---
Physical, Occupational & Speech Therapy At [facility] Current Diagnoses Other chronic pain (12/08/20) Pain in left shoulder (12/08/20) Abnormal posture (12/08/20) Weakness (12/08/20) Visit Care Team Role Provider Type Noel Eddy MD Primary Care Provider Non-Staff Specialty: [facility] Address: [address] [place] [address], [id number] Email: Attending Provider Referring Provider Specialty: Address: Phone: Fax: Email: Plan Of Care PT-OP-T Assessment and Plan Start: 11/02/20 18:24 Freq: Status: Active Protocol: Document 12/08/20 16:10 [facility] (Rec: 12/08/20 18:47 [facility] [id number]) Physical Therapy Assessment Goals quickdash Impairment 31.8 Making Line Worker Goal (LTG) Pt will imrpove score to no greater than 10 to show improved functional ability 12/08-nt LTG Duration 02/07/21 activies Short Term Goal (STG) Pt will be able to wake up without signficiant pain. STG Duration achieved Usp Goal (LTG) Pt will be able to do all ADLs like dressing w/o inc pain. 12/08-significantly dec pain LTG Duration 02/07/21 strength Short Term Goal (STG) pt will be indep w/appropriate HEP for posture and stability . STG Duration progressing as needd Making Line Worker Goal (LTG) pt will have at 5/5 MMT for all planes for L shoulder along w/at least 4/5 EFT to show imrpoved stability in order to allow full return to activites without pain 12/08-signficiant improvement. LTG Duration 02/07/21 ROM Short Term Goal (STG) Pt will improve ROM in all planes by 10 deg. STG Duration achieved Usp Goal (LTG) pt will have full ROM as compared to R shoulder in order to allow pt to do typical overhead activties and ADLs. 12/08-improve LTG Duration 02/07/21 Assessment Summary Assessment Pt is making excellent progrss over the past 4 treatment sessions and has shown signficiant inc in ROM, strength and functional ability. He cont to have dec ROM with pain w/resistance and some ADLs and would beneift from cont therapy to address this. Printouts given of HEP with review today to help pt with stretches to cont to inc ROM. Physical Therapy Plan Frequency and Duration Frequency of Treatment 1-2x/week Duration of Treatment 2 months Plan of Care Start Date 12/08/20 Plan of Care End Date 02/07/21 Therapeutic Interventions Therapeutic Interventions Aquatic Therapy,Home Exercise Program,Joint Mobilizations, Manual Therapy,Neuromuscular Re-education,Patient/Caregiver Education,Self-Care/Home Management,Soft Tissue Mobilization,Taping, Therapeutic Activities, Therapeutic Exercises Modalities Cold Pack/Ice Massage,Electric Stimulation,Hot Packs, Infrared Therapy,Ultrasound Next Visit Focus/Plan Next Note Type Treatment Note Next Visit Plan PNF, manual for ribcage mobility, manual for shoulder joint ROM Plan of Care Dates Plan of Care Start Date 12/08/20 Plan of Care End Date 02/07/21 Electronically Signed by: Cristina Bauman, PT 12/08/20 [id number] Please Sign and Return: I have reviewed this Plan of Care and certify that the skilled therapy services above are required to meet the patient?s needs. Physician Signature Date Printed Name and Credentials Clinical Instructor Signature Printed Name and Credentials
--- NOTE | 2020-12-14 17:22 | PT.OTN ---
Current Diagnoses Other chronic pain (12/14/20) Pain in left shoulder (12/14/20) Abnormal posture (12/14/20) Weakness (12/14/20) Physical Therapy Treatment Note PT-OP-A Visit Information Start: 11/02/20 18:24 Freq: Status: Active Protocol: Document 12/14/20 17:05 [facility] (Rec: 12/14/20 17:22 [facility] [id number]) Out-Patient Physical Therapy Visit Information Visit Information Visit Type Treatment Note Visit Note 06/08 Visit Start Time 16:07 Visit Stop Time 16:48 Total Visit Minutes 41 Visit Number 6 Number of DIE CUTTER DIAMOND Visits 0 PT-OP-B Current Condition Start: 11/02/20 18:24 Freq: Status: Active Protocol: Document 11/03/20 16:51 [facility] (Rec: 11/03/20 18:28 [facility] [id number]) Current Condition History of Current Condition Onset Date May Current Complaints L shoulder History of Current Condition Pt was sent here by another therapist in [place] d/t mar. Pt injured his shoulder during a ski fall. He fell backwards d/t going up something that was too high, fell to his backwards to his back and slid down hill and his L pole got caught on a branch and flipped him around. His wrist strap came off his wrist and his elbow was sore and still a little sore after and shoulder was sore. he skiied another 1.5 hours because he could pull. He said crossing his arms when L arm is on top butr not when its on the bottom. He is going to be getting a MRI. 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 He did PT and it got better. this was about 25 years ago. He L AC about 50 years ago. No shoulder pain in L side until he did the ski injury . R side has has RC trimming & a little cartilage stuff and take off part of acromion. Prior Treatments and Tests PT for a few months Future Testing and Treatments Planned MRI not yet scheduled Treatment Goals Patient/Caregiver Goals shoulder to stop hurting, be able to lift arm comfortably PT-OP-C Subjective Start: 11/02/20 18:24 Freq: Status: Active Protocol: Document 12/14/20 17:05 [facility] (Rec: 12/14/20 17:22 [facility] [id number]) OP-PT Subjective Patient Comments Patient Comments Pt reports he decided to cancel his injection. Does feel like shoulder is getting looser. he did some exercises but did forget some too. Patient Reported Progress Improving PT-OP-F Manual Assessment Start: 11/02/20 18:24 Freq: Status: Active Protocol: Document 11/03/20 16:51 [facility] (Rec: 11/03/20 18:28 [facility] [id number]) Manual Assessments Soft Tissue Assessment Soft Tissue Mobility Assessment L pec, UT, supraspinatsu and biceps tendon L PT-OP-J Posture/Palpation/Skin Start: 11/02/20 18:24 Freq: Status: Active Protocol: Document 11/03/20 16:51 [facility] (Rec: 11/03/20 18:28 [facility] [id number]) Posture Evaluation Comments Posture Comments inc kyphosis w/fwd head & shoudlers PT-OP-K Range of Motion Start: 11/02/20 18:24 Freq: Status: Active Protocol: Document 12/08/20 16:10 [facility] (Rec: 12/08/20 18:47 [facility] [id number]) Shoulder Goniometric Range of Motion Shoulder Left Active Flexion 138 Extension 54 Abduction 150 External Rotation at 90 degrees 58 Abduction External Rotation at 0 degrees Abduction 41 Internal Rotation Behind Back (text) T11 PT-OP-L Special Tests Start: 11/02/20 18:24 Freq: Status: Active Protocol: Document 11/03/20 16:51 [facility] (Rec: 11/03/20 18:28 [facility] [id number]) Special Tests Shoulder Special Tests Sulcus Test Results neg L Gonzalez Charly Impingement Test Results positive L Empty Can Test Results positive L AC Joint Compression Test Results mild pain L PT-OP-M Strength Start: 11/02/20 18:24 Freq: Status: Active Protocol: Document 12/08/20 16:10 [facility] (Rec: 12/08/20 18:47 [facility] [id number]) Shoulder Strength Shoulder Manual Muscle Testing Left Flexion 5 Normal Extension 5 Normal Abduction (C5) 5 Normal Adduction 5 Normal External Rotation 4 Good Internal Rotation 5 Normal Horizontal Abduction 5 Normal Horizontal Adduction 5 Normal PT-OP-Q Treatments Start: 11/02/20 18:24 Freq: Status: Active Protocol: Document 12/14/20 17:05 [facility] (Rec: 12/14/20 17:22 [facility] [id number]) Therapeutic Exercises Prone Exercises retraction Prone Exercise Name scap dep/retraction Side bilateral Comments overtball max cues ext Prone Exercise Name scap dep/retraction w/shoulder ext w/different rot Side bilateral Reps/Minutes 2x10 Standing Exercises retraction Standing Exercise Name scap dep/retraction Side bilateral Comments tactile cueing stretches Standing Exercise Name doorway arms ext stretch, 90/ 90 corner pec stretch Side bilateral Reps/Minutes review for HEP Manual Therapy Treatment Soft Tissue Mobilization LUE Body Location L pec, MFR L arm, biceps Mobilization Type Myofascial Release,Rolling, Strumming,Sustained Pressure Comments w/IR along plinth UT, LS, Scalenes, SCM Body Location L UT Mobilization Type Rolling,Strumming,Sustained Pressure Intensity/Depth Moderate Comments w/ant elevation/post dep PT-OP-T Assessment and Plan Start: 11/02/20 18:24 Freq: Status: Active Protocol: Document 12/14/20 17:05 [facility] (Rec: 12/14/20 17:22 [facility] [id number]) Physical Therapy Assessment Goals quickdash Impairment 31.8 Senior Care Goal (LTG) Pt will imrpove score to no greater than 10 to show improved functional ability 12/08-nt LTG Duration 02/07/21 activies Short Term Goal (STG) Pt will be able to wake up without signficiant pain. STG Duration achieved Senior Care Goal (LTG) Pt will be able to do all ADLs like dressing w/o inc pain. 12/08-significantly dec pain LTG Duration 02/07/21 strength Short Term Goal (STG) pt will be indep w/appropriate HEP for posture and stability . STG Duration progressing as needd Senior Care Goal (LTG) pt will have at 5/5 MMT for all planes for L shoulder along w/at least 4/5 EFT to show imrpoved stability in order to allow full return to activites without pain 12/08-signficiant improvement. LTG Duration 02/07/21 ROM Short Term Goal (STG) Pt will improve ROM in all planes by 10 deg. STG Duration achieved Cyber Incident Handler Goal (LTG) pt will have full ROM as compared to R shoulder in order to allow pt to do typical overhead activties and ADLs. 12/08-improve LTG Duration 02/07/21 Assessment Summary Assessment Pt has difficulty with scapular ROM and requires max cueing for scap depression and retraction. He has significantly dec active range on L side but improves w/ tactile cues. He has tendency for UT activation & requires max cues even during shoulder ext for scap retraction. Improved IR along bed after manual treatment Physical Therapy Plan Frequency and Duration Frequency of Treatment 1-2x/week Duration of Treatment 2 months Plan of Care Start Date 12/08/20 Plan of Care End Date 02/07/21 Next Visit Focus/Plan Next Note Type Treatment Note Next Visit Plan PNF, manual for ribcage mobility w/focus around rib 6, manual for shoulder joint ROM
--- NOTE | 2020-12-21 17:44 | PT.OTN ---
Current Diagnoses Other chronic pain (12/21/20) Pain in left shoulder (12/21/20) Abnormal posture (12/21/20) Weakness (12/21/20) Physical Therapy Treatment Note PT-OP-A Visit Information Start: 11/02/20 18:24 Freq: Status: Active Protocol: Document 12/21/20 17:38 [facility] (Rec: 12/21/20 17:43 [facility] [id number]) Out-Patient Physical Therapy Visit Information Visit Information Visit Type Treatment Note Visit Start Time 16:50 Visit Stop Time 17:30 Total Visit Minutes 40 Visit Number 7 Number of ADMISSIONS RN Visits 0 PT-OP-B Current Condition Start: 11/02/20 18:24 Freq: Status: Active Protocol: Document 11/03/20 16:51 [facility] (Rec: 11/03/20 18:28 [facility] [id number]) Current Condition History of Current Condition Onset Date May Current Complaints L shoulder History of Current Condition Pt was sent here by another therapist in [place] d/t mar. Pt injured his shoulder during a ski fall. He fell backwards d/t going up something that was too high, fell to his backwards to his back and slid down hill and his L pole got caught on a branch and flipped him around. His wrist strap came off his wrist and his elbow was sore and still a little sore after and shoulder was sore. he skiied another 1.5 hours because he could pull. He said crossing his arms when L arm is on top butr not when its on the bottom. He is going to be getting a MRI. 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 He did PT and it got better. this was about 25 years ago. He L AC about 50 years ago. No shoulder pain in L side until he did the ski injury . R side has has RC trimming & a little cartilage stuff and take off part of acromion. Prior Treatments and Tests PT for a few months Future Testing and Treatments Planned MRI not yet scheduled Treatment Goals Patient/Caregiver Goals shoulder to stop hurting, be able to lift arm comfortably PT-OP-C Subjective Start: 11/02/20 18:24 Freq: Status: Active Protocol: Document 12/21/20 17:38 [facility] (Rec: 12/21/20 17:43 [facility] [id number]) OP-PT Subjective Patient Comments Patient Comments Pt reports he feels like his improving. He still has pain when dressing but its less Patient Reported Progress Improving PT-OP-F Manual Assessment Start: 11/02/20 18:24 Freq: Status: Active Protocol: Document 11/03/20 16:51 [facility] (Rec: 11/03/20 18:28 [facility] [id number]) Manual Assessments Soft Tissue Assessment Soft Tissue Mobility Assessment L pec, UT, supraspinatsu and biceps tendon L PT-OP-J Posture/Palpation/Skin Start: 11/02/20 18:24 Freq: Status: Active Protocol: Document 11/03/20 16:51 [facility] (Rec: 11/03/20 18:28 [facility] [id number]) Posture Evaluation Comments Posture Comments inc kyphosis w/fwd head & shoudlers PT-OP-K Range of Motion Start: 11/02/20 18:24 Freq: Status: Active Protocol: Document 12/08/20 16:10 [facility] (Rec: 12/08/20 18:47 [facility] [id number]) Shoulder Goniometric Range of Motion Shoulder Left Active Flexion 138 Extension 54 Abduction 150 External Rotation at 90 degrees 58 Abduction External Rotation at 0 degrees Abduction 41 Internal Rotation Behind Back (text) T11 PT-OP-L Special Tests Start: 11/02/20 18:24 Freq: Status: Active Protocol: Document 11/03/20 16:51 [facility] (Rec: 11/03/20 18:28 [facility] [id number]) Special Tests Shoulder Special Tests Sulcus Test Results neg L Gonzalez Charly Impingement Test Results positive L Empty Can Test Results positive L AC Joint Compression Test Results mild pain L PT-OP-M Strength Start: 11/02/20 18:24 Freq: Status: Active Protocol: Document 12/08/20 16:10 [facility] (Rec: 12/08/20 18:47 [facility] [id number]) Shoulder Strength Shoulder Manual Muscle Testing Left Flexion 5 Normal Extension 5 Normal Abduction (C5) 5 Normal Adduction 5 Normal External Rotation 4 Good Internal Rotation 5 Normal Horizontal Abduction 5 Normal Horizontal Adduction 5 Normal PT-OP-Q Treatments Start: 11/02/20 18:24 Freq: Status: Active Protocol: Document 12/21/20 17:38 [facility] (Rec: 12/21/20 17:43 [facility] [id number]) Therapeutic Exercises Prone Exercises ext Prone Exercise Name scap dep/retraction w/shoulder ext w/different rot Side bilateral Reps/Minutes 10 Standing Exercises retraction Standing Exercise Name scap dep/retraction Side bilateral Comments tactile cueing; before and after manual Manual Therapy Treatment Soft Tissue Mobilization pec Body Location L Mobilization Type Strumming,Sustained Pressure Intensity/Depth Moderate Body Position Supine Comments w/shoulder IR/ER lats Body Location L lats & teres & post delt & infraspinatus Mobilization Type Rolling,Strumming Intensity/Depth Moderate UT, LS, Scalenes, SCM Body Location L UT, LS, scalenes Mobilization Type Rolling,Strumming,Sustained Pressure Intensity/Depth Moderate Comments w/ant elevation/post dep Joint Mobilizations GH Joint L Direction post & inf FM scapthoracic Joint L Direction inf & med glide AC Direction gapping FM tspine Joint UPA T6 & 7 Body Position Sidelying ribs Joint 6 & 7 cadual FM PT-OP-T Assessment and Plan Start: 11/02/20 18:24 Freq: Status: Active Protocol: Document 12/21/20 17:38 [facility] (Rec: 12/21/20 17:43 [facility] [id number]) Physical Therapy Assessment Goals quickdash Impairment 31.8 [facility] Goal (LTG) Pt will imrpove score to no greater than 10 to show improved functional ability 12/08-nt LTG Duration 02/07/21 activies Short Term Goal (STG) Pt will be able to wake up without signficiant pain. STG Duration achieved Crystallizer Operator Goal (LTG) Pt will be able to do all ADLs like dressing w/o inc pain. 12/08-significantly dec pain LTG Duration 02/07/21 strength Short Term Goal (STG) pt will be indep w/appropriate HEP for posture and stability . STG Duration progressing as needd Crystallizer Operator Goal (LTG) pt will have at 5/5 MMT for all planes for L shoulder along w/at least 4/5 EFT to show imrpoved stability in order to allow full return to activites without pain 12/08-signficiant improvement. LTG Duration 02/07/21 ROM Short Term Goal (STG) Pt will improve ROM in all planes by 10 deg. STG Duration achieved Crystallizer Operator Goal (LTG) pt will have full ROM as compared to R shoulder in order to allow pt to do typical overhead activties and ADLs. 12/08-improve LTG Duration 02/07/21 Assessment Summary Assessment Pt had significant improvement w/ability to do scap retraction and depression after manual treatment. He cont to show improved ROM between sessions. Physical Therapy Plan Frequency and Duration Frequency of Treatment 1-2x/week Duration of Treatment 2 months Plan of Care Start Date 12/08/20 Plan of Care End Date 02/07/21 Next Visit Focus/Plan Next Note Type Treatment Note Next Visit Plan PNF, scap strengthening
--- NOTE | 2020-12-27 18:31 | PT.OTN ---
Current Diagnoses Other chronic pain (12/27/20) Pain in left shoulder (12/27/20) Abnormal posture (12/27/20) Weakness (12/27/20) Physical Therapy Treatment Note PT-OP-A Visit Information Start: 11/02/20 18:24 Freq: Status: Active Protocol: Document 12/27/20 18:24 [facility] (Rec: 12/27/20 18:31 [facility] [id number]) Out-Patient Physical Therapy Visit Information Visit Information Visit Type Treatment Note Visit Start Time 16:00 Visit Stop Time 16:45 Total Visit Minutes 45 Visit Number 8 Number of FUNERAL CAR DRIVER Visits 0 PT-OP-B Current Condition Start: 11/02/20 18:24 Freq: Status: Active Protocol: Document 11/03/20 16:51 [facility] (Rec: 11/03/20 18:28 [facility] [id number]) Current Condition History of Current Condition Onset Date May Current Complaints L shoulder History of Current Condition Pt was sent here by another therapist in [place] d/t mar. Pt injured his shoulder during a ski fall. He fell backwards d/t going up something that was too high, fell to his backwards to his back and slid down hill and his L pole got caught on a branch and flipped him around. His wrist strap came off his wrist and his elbow was sore and still a little sore after and shoulder was sore. he skiied another 1.5 hours because he could pull. He said crossing his arms when L arm is on top butr not when its on the bottom. He is going to be getting a MRI. 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 He did PT and it got better. this was about 25 years ago. He L AC about 50 years ago. No shoulder pain in L side until he did the ski injury . R side has has RC trimming & a little cartilage stuff and take off part of acromion. Prior Treatments and Tests PT for a few months Future Testing and Treatments Planned MRI not yet scheduled Treatment Goals Patient/Caregiver Goals shoulder to stop hurting, be able to lift arm comfortably PT-OP-C Subjective Start: 11/02/20 18:24 Freq: Status: Active Protocol: Document 12/27/20 18:24 [facility] (Rec: 12/27/20 18:31 [facility] [id number]) OP-PT Subjective Patient Comments Patient Comments Pt reports shoulder cont to do better. Much less pain than before. He doesn't feel like he limits himself. He can now reachover w/his L hand to his reading light and turn it off. PT-OP-F Manual Assessment Start: 11/02/20 18:24 Freq: Status: Active Protocol: Document 11/03/20 16:51 [facility] (Rec: 11/03/20 18:28 [facility] [id number]) Manual Assessments Soft Tissue Assessment Soft Tissue Mobility Assessment L pec, UT, supraspinatsu and biceps tendon L PT-OP-J Posture/Palpation/Skin Start: 11/02/20 18:24 Freq: Status: Active Protocol: Document 11/03/20 16:51 [facility] (Rec: 11/03/20 18:28 [facility] [id number]) Posture Evaluation Comments Posture Comments inc kyphosis w/fwd head & shoudlers PT-OP-K Range of Motion Start: 11/02/20 18:24 Freq: Status: Active Protocol: Document 12/08/20 16:10 [facility] (Rec: 12/08/20 18:47 [facility] [id number]) Shoulder Goniometric Range of Motion Shoulder Left Active Flexion 138 Extension 54 Abduction 150 External Rotation at 90 degrees 58 Abduction External Rotation at 0 degrees Abduction 41 Internal Rotation Behind Back (text) T11 PT-OP-L Special Tests Start: 11/02/20 18:24 Freq: Status: Active Protocol: Document 11/03/20 16:51 [facility] (Rec: 11/03/20 18:28 [facility] [id number]) Special Tests Shoulder Special Tests Sulcus Test Results neg L Gonzalez Charly Impingement Test Results positive L Empty Can Test Results positive L AC Joint Compression Test Results mild pain L PT-OP-M Strength Start: 11/02/20 18:24 Freq: Status: Active Protocol: Document 12/08/20 16:10 [facility] (Rec: 12/08/20 18:47 [facility] [id number]) Shoulder Strength Shoulder Manual Muscle Testing Left Flexion 5 Normal Extension 5 Normal Abduction (C5) 5 Normal Adduction 5 Normal External Rotation 4 Good Internal Rotation 5 Normal Horizontal Abduction 5 Normal Horizontal Adduction 5 Normal PT-OP-Q Treatments Start: 11/02/20 18:24 Freq: Status: Active Protocol: Document 12/27/20 18:24 [facility] (Rec: 12/27/20 18:31 [facility] [id number]) Therapeutic Exercises Standing Exercises ER Standing Exercise Name focus on scap retraction Side bilateral Equipment Used l2 Reps/Minutes 15 ext Standing Exercise Name focus on scap retraction Side bilateral Equipment Used L2 Reps/Minutes 20 rows Standing Exercise Name focus on scap retraction Side bilateral Equipment Used L2 Reps/Minutes 20 retraction Standing Exercise Name scap retract w/HAbd thenf justa Side bilateral Equipment Used L2 Reps/Minutes 10 Manual Therapy Treatment Soft Tissue Mobilization lats Body Location L lats & teres & infraspinatus Mobilization Type Rolling,Strumming Intensity/Depth Moderate UT, LS, Scalenes, SCM Body Location L UT, LS, scalenes Mobilization Type Rolling,Strumming,Sustained Pressure Intensity/Depth Moderate Comments w/ant elevation/post dep Joint Mobilizations GH Joint L Direction post & inf FM scapthoracic Joint L Direction inf & med glide AC Direction gapping FM ribs Comments 1. caudal 1st rib FM 2. caudal 7 rib FM 3. ant caudal & AP FM rib 4 PT-OP-T Assessment and Plan Start: 11/02/20 18:24 Freq: Status: Active Protocol: Document 12/27/20 18:24 [facility] (Rec: 12/27/20 18:31 [facility] [id number]) Physical Therapy Assessment Goals quickdash Impairment 31.8 [facility] Goal (LTG) Pt will imrpove score to no greater than 10 to show improved functional ability 12/08-nt LTG Duration 02/07/21 activies Short Term Goal (STG) Pt will be able to wake up without signficiant pain. STG Duration achieved Interior Designer Goal (LTG) Pt will be able to do all ADLs like dressing w/o inc pain. 12/08-significantly dec pain LTG Duration 02/07/21 strength Short Term Goal (STG) pt will be indep w/appropriate HEP for posture and stability . STG Duration progressing as needd Interior Designer Goal (LTG) pt will have at 5/5 MMT for all planes for L shoulder along w/at least 4/5 EFT to show imrpoved stability in order to allow full return to activites without pain 12/08-signficiant improvement. LTG Duration 02/07/21 ROM Short Term Goal (STG) Pt will improve ROM in all planes by 10 deg. STG Duration achieved [facility] Goal (LTG) pt will have full ROM as compared to R shoulder in order to allow pt to do typical overhead activties and ADLs. 12/08-improve LTG Duration 02/07/21 Assessment Summary Assessment Pt reported even less pain w/ donning/doffing shirt after manual therapy today. He had signficiantly improved pec flexibility testing and scap post depressiona fter manual treatment along w/dec pain. Improved scap movement today noted but does require cues w/ exercises for depression w/ retraction vs elevation. Physical Therapy Plan Frequency and Duration Frequency of Treatment 1-2x/week Duration of Treatment 2 months Plan of Care Start Date 12/08/20 Plan of Care End Date 02/07/21 Next Visit Focus/Plan Next Note Type Treatment Note Next Visit Plan review exercises, PNF post dep , prone facilitation of rhomboids
--- NOTE | 2021-01-11 12:09 | PT.OTN ---
Current Diagnoses Other chronic pain (01/11/21) Pain in left shoulder (01/11/21) Abnormal posture (01/11/21) Weakness (01/11/21) Physical Therapy Treatment Note PT-OP-A Visit Information Start: 11/02/20 18:24 Freq: Status: Active Protocol: Document 01/11/21 12:00 [facility] (Rec: 01/11/21 12:09 [facility] [id number]) Out-Patient Physical Therapy Visit Information Visit Information Visit Type Treatment Note Visit Start Time 08:18 Visit Stop Time 09:00 Total Visit Minutes 42 Visit Number 9 Number of LINEMAN A CLASS Visits 0 PT-OP-B Current Condition Start: 11/02/20 18:24 Freq: Status: Active Protocol: Document 11/03/20 16:51 [facility] (Rec: 11/03/20 18:28 [facility] [id number]) Current Condition History of Current Condition Onset Date May Current Complaints L shoulder History of Current Condition Pt was sent here by another therapist in [place] d/t mar. Pt injured his shoulder during a ski fall. He fell backwards d/t going up something that was too high, fell to his backwards to his back and slid down hill and his L pole got caught on a branch and flipped him around. His wrist strap came off his wrist and his elbow was sore and still a little sore after and shoulder was sore. he skiied another 1.5 hours because he could pull. He said crossing his arms when L arm is on top butr not when its on the bottom. He is going to be getting a MRI. 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 He did PT and it got better. this was about 25 years ago. He L AC about 50 years ago. No shoulder pain in L side until he did the ski injury . R side has has RC trimming & a little cartilage stuff and take off part of acromion. Prior Treatments and Tests PT for a few months Future Testing and Treatments Planned MRI not yet scheduled Treatment Goals Patient/Caregiver Goals shoulder to stop hurting, be able to lift arm comfortably PT-OP-C Subjective Start: 11/02/20 18:24 Freq: Status: Active Protocol: Document 01/11/21 12:00 [facility] (Rec: 01/11/21 12:09 [facility] [id number]) OP-PT Subjective Patient Comments Patient Comments Pt reports he hasn't been very compliant with exercises but that is because shoulder is feeling better PT-OP-F Manual Assessment Start: 11/02/20 18:24 Freq: Status: Active Protocol: Document 11/03/20 16:51 [facility] (Rec: 11/03/20 18:28 [facility] [id number]) Manual Assessments Soft Tissue Assessment Soft Tissue Mobility Assessment L pec, UT, supraspinatsu and biceps tendon L PT-OP-J Posture/Palpation/Skin Start: 11/02/20 18:24 Freq: Status: Active Protocol: Document 11/03/20 16:51 [facility] (Rec: 11/03/20 18:28 [facility] [id number]) Posture Evaluation Comments Posture Comments inc kyphosis w/fwd head & shoudlers PT-OP-K Range of Motion Start: 11/02/20 18:24 Freq: Status: Active Protocol: Document 12/08/20 16:10 [facility] (Rec: 12/08/20 18:47 [facility] [id number]) Shoulder Goniometric Range of Motion Shoulder Left Active Flexion 138 Extension 54 Abduction 150 External Rotation at 90 degrees 58 Abduction External Rotation at 0 degrees Abduction 41 Internal Rotation Behind Back (text) T11 PT-OP-L Special Tests Start: 11/02/20 18:24 Freq: Status: Active Protocol: Document 11/03/20 16:51 [facility] (Rec: 11/03/20 18:28 [facility] [id number]) Special Tests Shoulder Special Tests Sulcus Test Results neg L Gonzalez Charly Impingement Test Results positive L Empty Can Test Results positive L AC Joint Compression Test Results mild pain L PT-OP-M Strength Start: 11/02/20 18:24 Freq: Status: Active Protocol: Document 12/08/20 16:10 [facility] (Rec: 12/08/20 18:47 [facility] [id number]) Shoulder Strength Shoulder Manual Muscle Testing Left Flexion 5 Normal Extension 5 Normal Abduction (C5) 5 Normal Adduction 5 Normal External Rotation 4 Good Internal Rotation 5 Normal Horizontal Abduction 5 Normal Horizontal Adduction 5 Normal PT-OP-Q Treatments Start: 11/02/20 18:24 Freq: Status: Active Protocol: Document 01/11/21 12:00 [facility] (Rec: 01/11/21 12:09 [facility] [id number]) Manual Therapy Treatment Soft Tissue Mobilization diaphram Body Location L w/ flex Body Position Supine lats Body Location L lats w/shoulder flex Mobilization Type Rolling,Strumming Intensity/Depth Moderate UT, LS, Scalenes, SCM Body Location L UT, LS, scalenes Mobilization Type Rolling,Strumming,Sustained Pressure Intensity/Depth Moderate Comments w/ant elevation/post dep Joint Mobilizations scapthoracic Joint L Direction inf & med glide tspine Joint L UPA & transverse RT6 & 7 ribs Body Position Sidelying Comments 1. caudal 1st rib FM 2. caudal 7 rib FM Neuro Re-Education Treatment Other Activities PNF Comments 1. post dep sustained holds progressed to w/LE pattern PT-OP-T Assessment and Plan Start: 11/02/20 18:24 Freq: Status: Active Protocol: Document 01/11/21 12:00 [facility] (Rec: 01/11/21 12:09 [facility] [id number]) Physical Therapy Assessment Goals quickdash Impairment 31.8 Research Specialist Goal (LTG) Pt will imrpove score to no greater than 10 to show improved functional ability 12/08-nt LTG Duration 02/07/21 activies Short Term Goal (STG) Pt will be able to wake up without signficiant pain. STG Duration achieved Nursing Home Goal (LTG) Pt will be able to do all ADLs like dressing w/o inc pain. 12/08-significantly dec pain LTG Duration 02/07/21 strength Short Term Goal (STG) pt will be indep w/appropriate HEP for posture and stability . STG Duration progressing as needd Nursing Home Goal (LTG) pt will have at 5/5 MMT for all planes for L shoulder along w/at least 4/5 EFT to show imrpoved stability in order to allow full return to activites without pain 12/08-signficiant improvement. LTG Duration 02/07/21 ROM Short Term Goal (STG) Pt will improve ROM in all planes by 10 deg. STG Duration achieved Research Specialist Goal (LTG) pt will have full ROM as compared to R shoulder in order to allow pt to do typical overhead activties and ADLs. 12/08-improve LTG Duration 02/07/21 Assessment Summary Assessment Pt had improved fwd flex and abd after manual treatment but is still significantly limited. He has significant tightness in ribcage that limits overhead flex and likely contributes to pain d/t inability of scap to move along ribcage appropriately Physical Therapy Plan Frequency and Duration Frequency of Treatment 1-2x/week Duration of Treatment 2 months Plan of Care Start Date 12/08/20 Plan of Care End Date 02/07/21 Next Visit Focus/Plan Next Note Type Treatment Note Next Visit Plan review exercises, PNF post dep , prone facilitation of rhomboids
--- NOTE | 2021-01-30 16:08 | PT.OTN ---
Current Diagnoses Other chronic pain (01/30/21) Pain in left shoulder (01/30/21) Abnormal posture (01/30/21) Weakness (01/30/21) Physical Therapy Treatment Note PT-OP-A Visit Information Start: 11/02/20 18:24 Freq: Status: Active Protocol: Document 01/30/21 15:59 [facility] (Rec: 02/01/21 16:08 [facility] [id number]) Out-Patient Physical Therapy Visit Information Visit Information Visit Type Treatment Note Visit Start Time 11:17 Visit Stop Time 12:00 Total Visit Minutes 43 Visit Number 10 Number of SEARCH ENGINE MARKETING STRATEGIST Visits 0 PT-OP-B Current Condition Start: 11/02/20 18:24 Freq: Status: Active Protocol: Document 11/03/20 16:51 [facility] (Rec: 11/03/20 18:28 [facility] [id number]) Current Condition History of Current Condition Onset Date May Current Complaints L shoulder History of Current Condition Pt was sent here by another therapist in [place] d/t mar. Pt injured his shoulder during a ski fall. He fell backwards d/t going up something that was too high, fell to his backwards to his back and slid down hill and his L pole got caught on a branch and flipped him around. His wrist strap came off his wrist and his elbow was sore and still a little sore after and shoulder was sore. he skiied another 1.5 hours because he could pull. He said crossing his arms when L arm is on top butr not when its on the bottom. He is going to be getting a MRI. 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 He did PT and it got better. this was about 25 years ago. He L AC about 50 years ago. No shoulder pain in L side until he did the ski injury . R side has has RC trimming & a little cartilage stuff and take off part of acromion. Prior Treatments and Tests PT for a few months Future Testing and Treatments Planned MRI not yet scheduled Treatment Goals Patient/Caregiver Goals shoulder to stop hurting, be able to lift arm comfortably PT-OP-C Subjective Start: 11/02/20 18:24 Freq: Status: Active Protocol: Document 01/30/21 15:59 [facility] (Rec: 02/01/21 16:08 [facility] [id number]) OP-PT Subjective Patient Comments Patient Comments Pt reports he hasn't been very compliant with exercises d/t travel and feeling better overall but still does bother him some Patient Reported Progress Improving PT-OP-F Manual Assessment Start: 11/02/20 18:24 Freq: Status: Active Protocol: Document 11/03/20 16:51 [facility] (Rec: 11/03/20 18:28 [facility] [id number]) Manual Assessments Soft Tissue Assessment Soft Tissue Mobility Assessment L pec, UT, supraspinatsu and biceps tendon L PT-OP-J Posture/Palpation/Skin Start: 11/02/20 18:24 Freq: Status: Active Protocol: Document 11/03/20 16:51 [facility] (Rec: 11/03/20 18:28 [facility] [id number]) Posture Evaluation Comments Posture Comments inc kyphosis w/fwd head & shoudlers PT-OP-K Range of Motion Start: 11/02/20 18:24 Freq: Status: Active Protocol: Document 12/08/20 16:10 [facility] (Rec: 12/08/20 18:47 [facility] [id number]) Shoulder Goniometric Range of Motion Shoulder Left Active Flexion 138 Extension 54 Abduction 150 External Rotation at 90 degrees 58 Abduction External Rotation at 0 degrees Abduction 41 Internal Rotation Behind Back (text) T11 PT-OP-L Special Tests Start: 11/02/20 18:24 Freq: Status: Active Protocol: Document 11/03/20 16:51 [facility] (Rec: 11/03/20 18:28 [facility] [id number]) Special Tests Shoulder Special Tests Sulcus Test Results neg L Gonzalez Charly Impingement Test Results positive L Empty Can Test Results positive L AC Joint Compression Test Results mild pain L PT-OP-M Strength Start: 11/02/20 18:24 Freq: Status: Active Protocol: Document 12/08/20 16:10 [facility] (Rec: 12/08/20 18:47 [facility] [id number]) Shoulder Strength Shoulder Manual Muscle Testing Left Flexion 5 Normal Extension 5 Normal Abduction (C5) 5 Normal Adduction 5 Normal External Rotation 4 Good Internal Rotation 5 Normal Horizontal Abduction 5 Normal Horizontal Adduction 5 Normal PT-OP-Q Treatments Start: 11/02/20 18:24 Freq: Status: Active Protocol: Document 01/30/21 15:59 [facility] (Rec: 02/01/21 16:08 [facility] [id number]) Therapeutic Exercises Standing Exercises ext Standing Exercise Name focus on scap retraction Side bilateral Equipment Used L2 Reps/Minutes 20 rows Standing Exercise Name focus on scap retraction Side bilateral Equipment Used L2 Reps/Minutes 20 Manual Therapy Treatment Soft Tissue Mobilization lats Body Location L lats w/shoulder flex Mobilization Type Rolling,Strumming Intensity/Depth Moderate Joint Mobilizations tspine Comments T7 & 8 transverse glide FM T3 transverse glide ribs Comments 1. caudal 1st rib FM 2. caudal 6 &7 rib FM & med glide Neuro Re-Education Treatment Other Activities PNF Comments 1. post dep sustained holds progressed to w/UE pattern PT-OP-T Assessment and Plan Start: 11/02/20 18:24 Freq: Status: Active Protocol: Document 01/30/21 15:59 [facility] (Rec: 02/01/21 16:08 [facility] [id number]) Physical Therapy Assessment Goals quickdash Impairment 31.8 Varitype Operator Goal (LTG) Pt will imrpove score to no greater than 10 to show improved functional ability 12/08-nt LTG Duration 02/07/21 activies Short Term Goal (STG) Pt will be able to wake up without signficiant pain. STG Duration achieved Varitype Operator Goal (LTG) Pt will be able to do all ADLs like dressing w/o inc pain. 12/08-significantly dec pain LTG Duration 02/07/21 strength Short Term Goal (STG) pt will be indep w/appropriate HEP for posture and stability . STG Duration progressing as needd [facility] Goal (LTG) pt will have at 5/5 MMT for all planes for L shoulder along w/at least 4/5 EFT to show imrpoved stability in order to allow full return to activites without pain 12/08-signficiant improvement. LTG Duration 02/07/21 ROM Short Term Goal (STG) Pt will improve ROM in all planes by 10 deg. STG Duration achieved Varitype Operator Goal (LTG) pt will have full ROM as compared to R shoulder in order to allow pt to do typical overhead activties and ADLs. 12/08-improve LTG Duration 02/07/21 Assessment Summary Assessment Pt is improving w/ROM and has equal ROM as other side w/just some pain at end ranges. He does need max cues with exercises which required inc time to work on form. Physical Therapy Plan Frequency and Duration Frequency of Treatment 1-2x/week Duration of Treatment 2 months Plan of Care Start Date 12/08/20 Plan of Care End Date 02/07/21 Next Visit Focus/Plan Next Note Type Progress Note Next Visit Plan review exercises, PNF post dep , prone facilitation of rhomboids
--- NOTE | 2021-02-06 15:29 | PT.OTN ---
Current Diagnoses Other chronic pain (02/06/21) Pain in left shoulder (02/06/21) Abnormal posture (02/06/21) Weakness (02/06/21) Physical Therapy Treatment Note PT-OP-A Visit Information Start: 11/02/20 18:24 Freq: Status: Active Protocol: Document 02/06/21 13:48 [facility] (Rec: 02/06/21 15:29 [facility] [id number]) Out-Patient Physical Therapy Visit Information Visit Information Visit Type Progress Note Visit Start Time 13:49 Visit Stop Time 14:30 Total Visit Minutes 41 Visit Number 11 Number of HUMAN SERVICES PROFESSIONAL Visits 0 PT-OP-B Current Condition Start: 11/02/20 18:24 Freq: Status: Active Protocol: Document 11/03/20 16:51 [facility] (Rec: 11/03/20 18:28 [facility] [id number]) Current Condition History of Current Condition Onset Date May Current Complaints L shoulder History of Current Condition Pt was sent here by another therapist in [place] d/t mar. Pt injured his shoulder during a ski fall. He fell backwards d/t going up something that was too high, fell to his backwards to his back and slid down hill and his L pole got caught on a branch and flipped him around. His wrist strap came off his wrist and his elbow was sore and still a little sore after and shoulder was sore. he skiied another 1.5 hours because he could pull. He said crossing his arms when L arm is on top butr not when its on the bottom. He is going to be getting a MRI. 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 He did PT and it got better. this was about 25 years ago. He L AC about 50 years ago. No shoulder pain in L side until he did the ski injury . R side has has RC trimming & a little cartilage stuff and take off part of acromion. Prior Treatments and Tests PT for a few months Future Testing and Treatments Planned MRI not yet scheduled Treatment Goals Patient/Caregiver Goals shoulder to stop hurting, be able to lift arm comfortably PT-OP-C Subjective Start: 11/02/20 18:24 Freq: Status: Active Protocol: Document 02/06/21 13:48 [facility] (Rec: 02/06/21 15:29 [facility] [id number]) OP-PT Subjective Patient Comments Patient Comments Pt reports reaching back, he still feels it some. PT-OP-F Manual Assessment Start: 11/02/20 18:24 Freq: Status: Active Protocol: Document 11/03/20 16:51 [facility] (Rec: 11/03/20 18:28 [facility] [id number]) Manual Assessments Soft Tissue Assessment Soft Tissue Mobility Assessment L pec, UT, supraspinatsu and biceps tendon L PT-OP-J Posture/Palpation/Skin Start: 11/02/20 18:24 Freq: Status: Active Protocol: Document 02/06/21 13:48 [facility] (Rec: 02/06/21 15:29 [facility] [id number]) Posture Evaluation [facility] Postural Classification System Elbow Flexion Test 3 PT-OP-K Range of Motion Start: 11/02/20 18:24 Freq: Status: Active Protocol: Document 02/06/21 13:48 [facility] (Rec: 02/06/21 15:29 [facility] [id number]) Shoulder Goniometric Range of Motion Shoulder Left Active Flexion 143 Extension 63 Abduction 157 External Rotation at 90 degrees 58 Abduction External Rotation at 0 degrees Abduction 46 Internal Rotation Behind Back (text) T10 PT-OP-L Special Tests Start: 11/02/20 18:24 Freq: Status: Active Protocol: Document 11/03/20 16:51 [facility] (Rec: 11/03/20 18:28 [facility] [id number]) Special Tests Shoulder Special Tests Sulcus Test Results neg L Gonzalez Charly Impingement Test Results positive L Empty Can Test Results positive L AC Joint Compression Test Results mild pain L PT-OP-M Strength Start: 11/02/20 18:24 Freq: Status: Active Protocol: Document 02/06/21 13:48 [facility] (Rec: 02/06/21 15:29 [facility] [id number]) Shoulder Strength Shoulder Manual Muscle Testing Right Flexion 5 Normal Extension 5 Normal Abduction (C5) 5 Normal External Rotation 5 Normal Internal Rotation 5 Normal Horizontal Abduction 5 Normal Horizontal Adduction 5 Normal Left Flexion 5 Normal Extension 4+ Good+ Abduction (C5) 5 Normal Adduction 5 Normal External Rotation 4+ Good+ Internal Rotation 5 Normal Horizontal Abduction 3+ Fair+ Horizontal Adduction 5 Normal Comments pain w/ext & Habd PT-OP-Q Treatments Start: 11/02/20 18:24 Freq: Status: Active Protocol: Document 02/06/21 13:48 [facility] (Rec: 02/06/21 15:29 [facility] [id number]) Therapeutic Exercises Sidelying Exercises open book Sidelying Exercise Name arm straight Side bilateral Reps/Minutes 10 Standing Exercises ER Side bilateral Equipment Used L2 Reps/Minutes 15 ext Standing Exercise Name focus on scap retraction Side bilateral Equipment Used L2 Reps/Minutes 20 rows Standing Exercise Name focus on scap retraction Side bilateral Equipment Used L2 Reps/Minutes 15 retraction Standing Exercise Name scap retract w/HAbd then flex Side bilateral Equipment Used L2 Reps/Minutes 10 stretches Standing Exercise Name doorway arms ext stretch, 90/ 90 corner pec stretch Side bilateral Reps/Minutes review for HEP 30 sec wall posture Standing Exercise Name roll up w/shoulder 90/90 ER Side bilateral Reps/Minutes x15 Comments required a couple times to reset back Manual Therapy Treatment Soft Tissue Mobilization post shoulder Body Location L teres, post delt Mobilization Type Sustained Pressure Intensity/Depth Moderate Body Position Supine Comments w/shoulder Joint Mobilizations GH Joint L Direction post & inf FM AC Direction gapping FM PT-OP-T Assessment and Plan Start: 11/02/20 18:24 Freq: Status: Active Protocol: Document 02/06/21 13:48 [facility] (Rec: 02/06/21 15:29 [facility] [id number]) Physical Therapy Assessment Goals quickdash Impairment 31.8 Jail Goal (LTG) Pt will imrpove score to no greater than 10 to show improved functional ability 12/08-nt 02/06-38.6 LTG Duration 04/08 activies Short Term Goal (STG) Pt will be able to wake up without signficiant pain. STG Duration achieved Jail Goal (LTG) Pt will be able to do all ADLs like dressing w/o inc pain. 12/08-significantly dec pain LTG Duration achieved 02/06 strength Short Term Goal (STG) pt will be indep w/appropriate HEP for posture and stability . STG Duration progressing as needd Jail Goal (LTG) pt will have at 5/5 MMT for all planes for L shoulder along w/at least 4/5 EFT to show imrpoved stability in order to allow full return to activites without pain 12/08-signficiant improvement. 02/06-0much improved LTG Duration 04/08 ROM Short Term Goal (STG) Pt will improve ROM in all planes by 10 deg. STG Duration achieved Jail Goal (LTG) pt will have full ROM as compared to R shoulder in order to allow pt to do typical overhead activties and ADLs. 12/08-improve 02/06-close to same but tight still on L LTG Duration 04/08/21 Assessment Summary Assessment Pt is making great progress with therapy and is noting that pain is less frequent and less often w/daily activities along w/less severe. He ahs not been recently compliant w/ HEP d/t a lot of travelling, but plans to resume now that he is home. He has much improved ROM but still has some discomfort at end range. Physical Therapy Plan Frequency and Duration Frequency of Treatment 1x/Week Duration of Treatment 2 months Plan of Care Start Date 02/06/21 Plan of Care End Date 04/08/21 Therapeutic Interventions Therapeutic Interventions Aquatic Therapy,Home Exercise Program,Joint Mobilizations, Manual Therapy,Neuromuscular Re-education,Patient/Caregiver Education,Self-Care/Home Management,Soft Tissue Mobilization,Taping, Therapeutic Activities, Therapeutic Exercises Modalities Cold Pack/Ice Massage,Electric Stimulation,Hot Packs, Infrared Therapy,Ultrasound Next Visit Focus/Plan Next Note Type Treatment Note Next Visit Plan review strength exercises & cont to work on end range and ability to extend and HAbd
--- NOTE | 2021-02-06 15:37 | PT.OPPN ---
Current Diagnoses Other chronic pain (02/06/21) Pain in left shoulder (02/06/21) Abnormal posture (02/06/21) Weakness (02/06/21) Physical Therapy Progress Note PT-OP-A Visit Information Start: 11/02/20 18:24 Freq: Status: Active Protocol: Document 02/06/21 13:48 [facility] (Rec: 02/06/21 15:29 [facility] [id number]) Out-Patient Physical Therapy Visit Information Visit Information Visit Type Progress Note Visit Start Time 13:49 Visit Stop Time 14:30 Total Visit Minutes 41 Visit Number 11 Number of [employer]UTIONS EXEC[employer]IVE [employer]URITY Visits 0 PT-OP-B Current Condition Start: 11/02/20 18:24 Freq: Status: Active Protocol: Document 11/03/20 16:51 [facility] (Rec: 11/03/20 18:28 [facility] [id number]) Current Condition History of Current Condition Onset Date May Current Complaints L shoulder History of Current Condition Pt was sent here by another therapist in [place] d/t mar. Pt injured his shoulder during a ski fall. He fell backwards d/t going up something that was too high, fell to his backwards to his back and slid down hill and his L pole got caught on a branch and flipped him around. His wrist strap came off his wrist and his elbow was sore and still a little sore after and shoulder was sore. he skiied another 1.5 hours because he could pull. He said crossing his arms when L arm is on top butr not when its on the bottom. He is going to be getting a MRI. 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 He did PT and it got better. this was about 25 years ago. He L AC about 50 years ago. No shoulder pain in L side until he did the ski injury . R side has has RC trimming & a little cartilage stuff and take off part of acromion. Prior Treatments and Tests PT for a few months Future Testing and Treatments Planned MRI not yet scheduled Treatment Goals Patient/Caregiver Goals shoulder to stop hurting, be able to lift arm comfortably PT-OP-C Subjective Start: 11/02/20 18:24 Freq: Status: Active Protocol: Document 02/06/21 13:48 [facility] (Rec: 02/06/21 15:29 [facility] [id number]) OP-PT Subjective Patient Comments Patient Comments Pt reports reaching back, he still feels it some. PT-OP-F Manual Assessment Start: 11/02/20 18:24 Freq: Status: Active Protocol: Document 11/03/20 16:51 [facility] (Rec: 11/03/20 18:28 [facility] [id number]) Manual Assessments Soft Tissue Assessment Soft Tissue Mobility Assessment L pec, UT, supraspinatsu and biceps tendon L PT-OP-J Posture/Palpation/Skin Start: 11/02/20 18:24 Freq: Status: Active Protocol: Document 02/06/21 13:48 [facility] (Rec: 02/06/21 15:29 [facility] [id number]) Posture Evaluation [facility] Postural Classification System Elbow Flexion Test 3 PT-OP-K Range of Motion Start: 11/02/20 18:24 Freq: Status: Active Protocol: Document 02/06/21 13:48 [facility] (Rec: 02/06/21 15:29 [facility] [id number]) Shoulder Goniometric Range of Motion Shoulder Measured in Degrees Left Active Flexion 143 Extension 63 Abduction 157 External Rotation at 90 degrees 58 Abduction External Rotation at 0 degrees Abduction 46 Internal Rotation Behind Back (text) T10 PT-OP-L Special Tests Start: 11/02/20 18:24 Freq: Status: Active Protocol: Document 11/03/20 16:51 [facility] (Rec: 11/03/20 18:28 [facility] [id number]) Special Tests Shoulder Special Tests Sulcus Test Results neg L Gonzalez Charly Impingement Test Results positive L Empty Can Test Results positive L AC Joint Compression Test Results mild pain L PT-OP-M Strength Start: 11/02/20 18:24 Freq: Status: Active Protocol: Document 02/06/21 13:48 [facility] (Rec: 02/06/21 15:29 [facility] [id number]) Shoulder Strength Shoulder Manual Muscle Testing Right Flexion 5 Normal Extension 5 Normal Abduction (C5) 5 Normal External Rotation 5 Normal Internal Rotation 5 Normal Horizontal Abduction 5 Normal Horizontal Adduction 5 Normal Left Flexion 5 Normal Extension 4+ Good+ Abduction (C5) 5 Normal Adduction 5 Normal External Rotation 4+ Good+ Internal Rotation 5 Normal Horizontal Abduction 3+ Fair+ Horizontal Adduction 5 Normal Comments pain w/ext & Habd PT-OP-T Assessment and Plan Start: 11/02/20 18:24 Freq: Status: Active Protocol: Document 02/06/21 13:48 [facility] (Rec: 02/06/21 15:29 [facility] [id number]) Physical Therapy Assessment Goals quickdash Impairment 31.8 Snf Goal (LTG) Pt will imrpove score to no greater than 10 to show improved functional ability 12/08-nt 02/06-38.6 LTG Duration 04/08 activies Short Term Goal (STG) Pt will be able to wake up without signficiant pain. STG Duration achieved Snf Goal (LTG) Pt will be able to do all ADLs like dressing w/o inc pain. 12/08-significantly dec pain LTG Duration achieved 02/06 strength Short Term Goal (STG) pt will be indep w/appropriate HEP for posture and stability . STG Duration progressing as needd Snf Goal (LTG) pt will have at 5/5 MMT for all planes for L shoulder along w/at least 4/5 EFT to show imrpoved stability in order to allow full return to activites without pain 12/08-signficiant improvement. 02/06-0much improved LTG Duration 04/08 ROM Short Term Goal (STG) Pt will improve ROM in all planes by 10 deg. STG Duration achieved Snf Goal (LTG) pt will have full ROM as compared to R shoulder in order to allow pt to do typical overhead activties and ADLs. 12/08-improve 02/06-close to same but tight still on L LTG Duration 04/08/21 Assessment Summary Assessment Pt is making great progress with therapy and is noting that pain is less frequent and less often w/daily activities along w/less severe. He ahs not been recently compliant w/ HEP d/t a lot of travelling, but plans to resume now that he is home. He has much improved ROM but still has some discomfort at end range. Physical Therapy Plan Frequency and Duration Frequency of Treatment 1x/Week Duration of Treatment 2 months Plan of Care Start Date 02/06/21 Plan of Care End Date 04/08/21 Therapeutic Interventions Therapeutic Interventions Aquatic Therapy,Home Exercise Program,Joint Mobilizations, Manual Therapy,Neuromuscular Re-education,Patient/Caregiver Education,Self-Care/Home Management,Soft Tissue Mobilization,Taping, Therapeutic Activities, Therapeutic Exercises Modalities Cold Pack/Ice Massage,Electric Stimulation,Hot Packs, Infrared Therapy,Ultrasound Next Visit Focus/Plan Next Note Type Treatment Note Next Visit Plan review strength exercises & cont to work on end range and ability to extend and HAbd
--- NOTE | 2021-02-06 15:38 | PT.OPPOC ---
Physical, Occupational & Speech Therapy At [facility] Current Diagnoses Other chronic pain (02/06/21) Pain in left shoulder (02/06/21) Abnormal posture (02/06/21) Weakness (02/06/21) Visit Care Team Role Provider Type Noel Eddy MD Primary Care Provider Non-Staff Specialty: [facility] Address: [address] [place] [address], [id number] Email: Attending Provider Referring Provider Specialty: Address: Phone: Fax: Email: Plan Of Care PT-OP-T Assessment and Plan Start: 11/02/20 18:24 Freq: Status: Active Protocol: Document 02/06/21 13:48 [facility] (Rec: 02/06/21 15:29 [facility] [id number]) Physical Therapy Assessment Goals quickdash Impairment 31.8 [employer] Goal (LTG) Pt will imrpove score to no greater than 10 to show improved functional ability 12/08-nt 02/06-38.6 LTG Duration 04/08 activies Short Term Goal (STG) Pt will be able to wake up without signficiant pain. STG Duration achieved [employer] Goal (LTG) Pt will be able to do all ADLs like dressing w/o inc pain. 12/08-significantly dec pain LTG Duration achieved 02/06 strength Short Term Goal (STG) pt will be indep w/appropriate HEP for posture and stability . STG Duration progressing as needd [employer] Goal (LTG) pt will have at 5/5 MMT for all planes for L shoulder along w/at least 4/5 EFT to show imrpoved stability in order to allow full return to activites without pain 12/08-signficiant improvement. 02/06-0much improved LTG Duration 04/08 ROM Short Term Goal (STG) Pt will improve ROM in all planes by 10 deg. STG Duration achieved [facility] Living Goal (LTG) pt will have full ROM as compared to R shoulder in order to allow pt to do typical overhead activties and ADLs. 12/08-improve 02/06-close to same but tight still on L LTG Duration 04/08/21 Assessment Summary Assessment Pt is making great progress with therapy and is noting that pain is less frequent and less often w/daily activities along w/less severe. He ahs not been recently compliant w/ HEP d/t a lot of travelling, but plans to resume now that he is home. He has much improved ROM but still has some discomfort at end range. Physical Therapy Plan Frequency and Duration Frequency of Treatment 1x/Week Duration of Treatment 2 months Plan of Care Start Date 02/06/21 Plan of Care End Date 04/08/21 Therapeutic Interventions Therapeutic Interventions Aquatic Therapy,Home Exercise Program,Joint Mobilizations, Manual Therapy,Neuromuscular Re-education,Patient/Caregiver Education,Self-Care/Home Management,Soft Tissue Mobilization,Taping, Therapeutic Activities, Therapeutic Exercises Modalities Cold Pack/Ice Massage,Electric Stimulation,Hot Packs, Infrared Therapy,Ultrasound Next Visit Focus/Plan Next Note Type Treatment Note Next Visit Plan review strength exercises & cont to work on end range and ability to extend and HAbd Plan of Care Dates Plan of Care Start Date 02/06/21 Plan of Care End Date 04/08/21 Electronically Signed by: Cristina Bauman, PT 02/06/21 [id number] Please Sign and Return: I have reviewed this Plan of Care and certify that the skilled therapy services above are required to meet the patient?s needs. Physician Signature Date Printed Name and Credentials Clinical Instructor Signature Printed Name and Credentials
--- NOTE | 2021-02-14 13:45 | PT.OTN ---
Current Diagnoses Other chronic pain (02/14/21) Pain in left shoulder (02/14/21) Abnormal posture (02/14/21) Weakness (02/14/21) Physical Therapy Treatment Note PT-OP-A Visit Information Start: 11/02/20 18:24 Freq: Status: Active Protocol: Document 02/14/21 12:59 [facility] (Rec: 02/14/21 13:45 [facility] [id number]) Out-Patient Physical Therapy Visit Information Visit Information Visit Type Treatment Note Visit Start Time 13:01 Visit Stop Time 13:41 Total Visit Minutes 40 Visit Number 12 Number of ROCKET ENGINE TESTER Visits 0 PT-OP-B Current Condition Start: 11/02/20 18:24 Freq: Status: Active Protocol: Document 11/03/20 16:51 [facility] (Rec: 11/03/20 18:28 [facility] [id number]) Current Condition History of Current Condition Onset Date May Current Complaints L shoulder History of Current Condition Pt was sent here by another therapist in [place] d/t mar. Pt injured his shoulder during a ski fall. He fell backwards d/t going up something that was too high, fell to his backwards to his back and slid down hill and his L pole got caught on a branch and flipped him around. His wrist strap came off his wrist and his elbow was sore and still a little sore after and shoulder was sore. he skiied another 1.5 hours because he could pull. He said crossing his arms when L arm is on top butr not when its on the bottom. He is going to be getting a MRI. 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 He did PT and it got better. this was about 25 years ago. He L AC about 50 years ago. No shoulder pain in L side until he did the ski injury . R side has has RC trimming & a little cartilage stuff and take off part of acromion. Prior Treatments and Tests PT for a few months Future Testing and Treatments Planned MRI not yet scheduled Treatment Goals Patient/Caregiver Goals shoulder to stop hurting, be able to lift arm comfortably PT-OP-C Subjective Start: 11/02/20 18:24 Freq: Status: Active Protocol: Document 02/14/21 12:59 [facility] (Rec: 02/14/21 13:45 [facility] [id number]) OP-PT Subjective Patient Comments Patient Comments Pt reports doing exercises a little last session d/t visiting friends this weekend. PT-OP-F Manual Assessment Start: 11/02/20 18:24 Freq: Status: Active Protocol: Document 11/03/20 16:51 [facility] (Rec: 11/03/20 18:28 [facility] [id number]) Manual Assessments Soft Tissue Assessment Soft Tissue Mobility Assessment L pec, UT, supraspinatsu and biceps tendon L PT-OP-J Posture/Palpation/Skin Start: 11/02/20 18:24 Freq: Status: Active Protocol: Document 02/06/21 13:48 [facility] (Rec: 02/06/21 15:29 [facility] [id number]) Posture Evaluation [facility] Postural Classification System Elbow Flexion Test 3 PT-OP-K Range of Motion Start: 11/02/20 18:24 Freq: Status: Active Protocol: Document 02/06/21 13:48 [facility] (Rec: 02/06/21 15:29 [facility] [id number]) Shoulder Goniometric Range of Motion Shoulder Left Active Flexion 143 Extension 63 Abduction 157 External Rotation at 90 degrees 58 Abduction External Rotation at 0 degrees Abduction 46 Internal Rotation Behind Back (text) T10 PT-OP-L Special Tests Start: 11/02/20 18:24 Freq: Status: Active Protocol: Document 11/03/20 16:51 [facility] (Rec: 11/03/20 18:28 [facility] [id number]) Special Tests Shoulder Special Tests Sulcus Test Results neg L Gonzalez Charly Impingement Test Results positive L Empty Can Test Results positive L AC Joint Compression Test Results mild pain L PT-OP-M Strength Start: 11/02/20 18:24 Freq: Status: Active Protocol: Document 02/06/21 13:48 [facility] (Rec: 02/06/21 15:29 [facility] [id number]) Shoulder Strength Shoulder Manual Muscle Testing Right Flexion 5 Normal Extension 5 Normal Abduction (C5) 5 Normal External Rotation 5 Normal Internal Rotation 5 Normal Horizontal Abduction 5 Normal Horizontal Adduction 5 Normal Left Flexion 5 Normal Extension 4+ Good+ Abduction (C5) 5 Normal Adduction 5 Normal External Rotation 4+ Good+ Internal Rotation 5 Normal Horizontal Abduction 3+ Fair+ Horizontal Adduction 5 Normal Comments pain w/ext & Habd PT-OP-Q Treatments Start: 11/02/20 18:24 Freq: Status: Active Protocol: Document 02/14/21 12:59 [facility] (Rec: 02/14/21 13:45 [facility] [id number]) Therapeutic Exercises Sidelying Exercises open book Sidelying Exercise Name arm straight Side bilateral Reps/Minutes 8 Standing Exercises ext Standing Exercise Name focus on scap retraction Side bilateral Equipment Used L3 Reps/Minutes 20 Comments signficant cueing rows Standing Exercise Name focus on scap retraction Side bilateral Equipment Used L3 Reps/Minutes 15 retraction Standing Exercise Name scap retract w/HAbd then flex Side bilateral Equipment Used L2 Reps/Minutes 10 stretches Standing Exercise Name doorway arms ext stretch, 90/ 90 corner pec stretch Side bilateral Reps/Minutes review for HEP 30 sec wall posture Standing Exercise Name roll up w/shoulder 90/90 ER changed to hold w/ shoulder ext d/t pain in ER Side bilateral Reps/Minutes 4 min Manual Therapy Treatment Soft Tissue Mobilization pec Body Location L Mobilization Type Strumming,Sustained Pressure Intensity/Depth Moderate Body Position Supine Comments w/shoulder IR/ER Joint Mobilizations GH Joint L Direction post & inf FM scapthoracic Joint L Direction inf & med glide SC Joint L Direction INf FM w/abd AC Direction gapping FM w/abd tspine Comments T3 &4 transverse glide R PT-OP-T Assessment and Plan Start: 11/02/20 18:24 Freq: Status: Active Protocol: Document 02/14/21 12:59 [facility] (Rec: 02/14/21 13:45 [facility] [id number]) Physical Therapy Assessment Goals quickdash Impairment 31.8 Prison Goal (LTG) Pt will imrpove score to no greater than 10 to show improved functional ability 12/08-nt 02/06-38.6 LTG Duration 04/08 activies Short Term Goal (STG) Pt will be able to wake up without signficiant pain. STG Duration achieved Waredresser Goal (LTG) Pt will be able to do all ADLs like dressing w/o inc pain. 12/08-significantly dec pain LTG Duration achieved 02/06 strength Short Term Goal (STG) pt will be indep w/appropriate HEP for posture and stability . STG Duration progressing as needd Prison Goal (LTG) pt will have at 5/5 MMT for all planes for L shoulder along w/at least 4/5 EFT to show imrpoved stability in order to allow full return to activites without pain 12/08-signficiant improvement. 02/06-0much improved LTG Duration 04/08 ROM Short Term Goal (STG) Pt will improve ROM in all planes by 10 deg. STG Duration achieved Waredresser Goal (LTG) pt will have full ROM as compared to R shoulder in order to allow pt to do typical overhead activties and ADLs. 12/08-improve 02/06-close to same but tight still on L LTG Duration 04/08/21 Assessment Summary Assessment Pt required less cueing overall w/exercises except some w/Habd w/flex and ext of shoulder w/tband to work on better scap engagment. Improved abd ROM w/o pain w/ manual treatment and pt had no pain w/full ext today. Habd remains most difficult motion for pt Physical Therapy Plan Frequency and Duration Frequency of Treatment 1x/Week Duration of Treatment 2 months Plan of Care Start Date 02/06/21 Plan of Care End Date 04/08/21 Next Visit Focus/Plan Next Note Type Treatment Note Next Visit Plan review shoulder ext & cont to work on end range and comfortability w/HAbd & abd
--- NOTE | 2021-02-21 18:33 | PT.OTN ---
Current Diagnoses Other chronic pain (02/21/21) Pain in left shoulder (02/21/21) Abnormal posture (02/21/21) Weakness (02/21/21) Physical Therapy Treatment Note PT-OP-A Visit Information Start: 11/02/20 18:24 Freq: Status: Active Protocol: Document 02/21/21 18:25 [facility] (Rec: 02/21/21 18:33 [facility] [id number]) Out-Patient Physical Therapy Visit Information Visit Information Visit Type Treatment Note Visit Start Time 14:41 Visit Stop Time 15:22 Total Visit Minutes 41 Visit Number 13 Number of CUSTOMER GREETER Visits 0 PT-OP-B Current Condition Start: 11/02/20 18:24 Freq: Status: Active Protocol: Document 11/03/20 16:51 [facility] (Rec: 11/03/20 18:28 [facility] [id number]) Current Condition History of Current Condition Onset Date May Current Complaints L shoulder History of Current Condition Pt was sent here by another therapist in [place] d/t mar. Pt injured his shoulder during a ski fall. He fell backwards d/t going up something that was too high, fell to his backwards to his back and slid down hill and his L pole got caught on a branch and flipped him around. His wrist strap came off his wrist and his elbow was sore and still a little sore after and shoulder was sore. he skiied another 1.5 hours because he could pull. He said crossing his arms when L arm is on top butr not when its on the bottom. He is going to be getting a MRI. 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 He did PT and it got better. this was about 25 years ago. He L AC about 50 years ago. No shoulder pain in L side until he did the ski injury . R side has has RC trimming & a little cartilage stuff and take off part of acromion. Prior Treatments and Tests PT for a few months Future Testing and Treatments Planned MRI not yet scheduled Treatment Goals Patient/Caregiver Goals shoulder to stop hurting, be able to lift arm comfortably PT-OP-C Subjective Start: 11/02/20 18:24 Freq: Status: Active Protocol: Document 02/21/21 18:25 [facility] (Rec: 02/21/21 18:33 [facility] [id number]) OP-PT Subjective Patient Comments Patient Comments Pt reports he doesn't notice shoulder until he was laying in bed propped onto it to talk to someone. PT-OP-F Manual Assessment Start: 11/02/20 18:24 Freq: Status: Active Protocol: Document 11/03/20 16:51 [facility] (Rec: 11/03/20 18:28 [facility] [id number]) Manual Assessments Soft Tissue Assessment Soft Tissue Mobility Assessment L pec, UT, supraspinatsu and biceps tendon L PT-OP-J Posture/Palpation/Skin Start: 11/02/20 18:24 Freq: Status: Active Protocol: Document 02/06/21 13:48 [facility] (Rec: 02/06/21 15:29 [facility] [id number]) Posture Evaluation [facility] Postural Classification System Elbow Flexion Test 3 PT-OP-K Range of Motion Start: 11/02/20 18:24 Freq: Status: Active Protocol: Document 02/06/21 13:48 [facility] (Rec: 02/06/21 15:29 [facility] [id number]) Shoulder Goniometric Range of Motion Shoulder Left Active Flexion 143 Extension 63 Abduction 157 External Rotation at 90 degrees 58 Abduction External Rotation at 0 degrees Abduction 46 Internal Rotation Behind Back (text) T10 PT-OP-L Special Tests Start: 11/02/20 18:24 Freq: Status: Active Protocol: Document 11/03/20 16:51 [facility] (Rec: 11/03/20 18:28 [facility] [id number]) Special Tests Shoulder Special Tests Sulcus Test Results neg L Gonzalez Charly Impingement Test Results positive L Empty Can Test Results positive L AC Joint Compression Test Results mild pain L PT-OP-M Strength Start: 11/02/20 18:24 Freq: Status: Active Protocol: Document 02/06/21 13:48 [facility] (Rec: 02/06/21 15:29 [facility] [id number]) Shoulder Strength Shoulder Manual Muscle Testing Right Flexion 5 Normal Extension 5 Normal Abduction (C5) 5 Normal External Rotation 5 Normal Internal Rotation 5 Normal Horizontal Abduction 5 Normal Horizontal Adduction 5 Normal Left Flexion 5 Normal Extension 4+ Good+ Abduction (C5) 5 Normal Adduction 5 Normal External Rotation 4+ Good+ Internal Rotation 5 Normal Horizontal Abduction 3+ Fair+ Horizontal Adduction 5 Normal Comments pain w/ext & Habd PT-OP-Q Treatments Start: 11/02/20 18:24 Freq: Status: Active Protocol: Document 02/21/21 18:25 [facility] (Rec: 02/21/21 18:33 [facility] [id number]) Therapeutic Exercises Supine Exercises serratus punch Side bilateral Reps/Minutes 2x10 Comments max cues initially Sidelying Exercises press up Sidelying Exercise Name set of shoulder in s/l press into bed to lift shoulder w/ set scap Side left Reps/Minutes 5x15 sec Standing Exercises serratus punch Standing Exercise Name wall Side bilateral Reps/Minutes 3x10 Comments max cues for set of scap & mvoement Other Exercises quadruped Other Exercise Name alt hip ext working on B scap stability & core stability Side bilateral Reps/Minutes 2x10 serratus punch Side bilateral Reps/Minutes 3x10 Comments max cues Manual Therapy Treatment Soft Tissue Mobilization UT, LS, Scalenes, SCM Body Location L UT, LS, scalenes Mobilization Type Rolling,Strumming,Sustained Pressure Intensity/Depth Moderate Comments w/ant elevation/post dep Joint Mobilizations scapthoracic Joint L Direction inf & med glide PT-OP-T Assessment and Plan Start: 11/02/20 18:24 Freq: Status: Active Protocol: Document 02/21/21 18:25 [facility] (Rec: 02/21/21 18:33 [facility] [id number]) Physical Therapy Assessment Goals quickdash Impairment 31.8 Field Mechanic Goal (LTG) Pt will imrpove score to no greater than 10 to show improved functional ability 12/08-nt 02/06-38.6 LTG Duration 04/08 activies Short Term Goal (STG) Pt will be able to wake up without signficiant pain. STG Duration achieved Field Mechanic Goal (LTG) Pt will be able to do all ADLs like dressing w/o inc pain. 12/08-significantly dec pain LTG Duration achieved 02/06 strength Short Term Goal (STG) pt will be indep w/appropriate HEP for posture and stability . STG Duration progressing as needd Field Mechanic Goal (LTG) pt will have at 5/5 MMT for all planes for L shoulder along w/at least 4/5 EFT to show imrpoved stability in order to allow full return to activites without pain 12/08-signficiant improvement. 02/06-0much improved LTG Duration 04/08 ROM Short Term Goal (STG) Pt will improve ROM in all planes by 10 deg. STG Duration achieved Field Mechanic Goal (LTG) pt will have full ROM as compared to R shoulder in order to allow pt to do typical overhead activties and ADLs. 12/08-improve 02/06-close to same but tight still on L LTG Duration 04/08/21 Assessment Summary Assessment Pt was initially limited in ability to do serratus movement d/t limiated scap downward glide and set so was using a lot of UT and that was improved w/manual treatment. Did required max cueing w/ exercises. Physical Therapy Plan Frequency and Duration Frequency of Treatment 1x/Week Duration of Treatment 2 months Plan of Care Start Date 02/06/21 Plan of Care End Date 04/08/21 Next Visit Focus/Plan Next Note Type Treatment Note Next Visit Plan cont to work on wt strength to L shoulder, possible DC
--- NOTE | 2021-04-27 15:39 | PT.OPDS ---
Current Diagnoses Other chronic pain (02/21/21) Pain in left shoulder (02/21/21) Abnormal posture (02/21/21) Weakness (02/21/21) Visit Care Team Role Provider Type Noel Eddy MD Primary Care Provider Non-Staff Specialty: Family Practice Address: [address] [place] [address], [id number] Email: Attending Provider Referring Provider Specialty: Address: Phone: Fax: Email: Visit Number Visit Number 13 Discharge Summary PT-OP-B Current Condition Start: 11/02/20 18:24 Freq: Status: Active Protocol: Document 11/03/20 16:51 [facility] (Rec: 11/03/20 18:28 [facility] [id number]) Current Condition History of Current Condition Onset Date May Current Complaints L shoulder History of Current Condition Pt was sent here by another therapist in [place] d/t mar. Pt injured his shoulder during a ski fall. He fell backwards d/t going up something that was too high, fell to his backwards to his back and slid down hill and his L pole got caught on a branch and flipped him around. His wrist strap came off his wrist and his elbow was sore and still a little sore after and shoulder was sore. he skiied another 1.5 hours because he could pull. He said crossing his arms when L arm is on top butr not when its on the bottom. He is going to be getting a MRI. 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 He did PT and it got better. this was about 25 years ago. He L AC about 50 years ago. No shoulder pain in L side until he did the ski injury . R side has has RC trimming & a little cartilage stuff and take off part of acromion. Prior Treatments and Tests PT for a few months Future Testing and Treatments Planned MRI not yet scheduled Treatment Goals Patient/Caregiver Goals shoulder to stop hurting, be able to lift arm comfortably PT-OP-C Subjective Start: 11/02/20 18:24 Freq: Status: Active Protocol: Document 02/21/21 18:25 [facility] (Rec: 02/21/21 18:33 [facility] [id number]) OP-PT Subjective Patient Comments Patient Comments Pt reports he doesn't notice shoulder until he was laying in bed propped onto it to talk to someone. PT-OP-F Manual Assessment Start: 11/02/20 18:24 Freq: Status: Active Protocol: Document 11/03/20 16:51 [facility] (Rec: 11/03/20 18:28 [facility] [id number]) Manual Assessments Soft Tissue Assessment Soft Tissue Mobility Assessment L pec, UT, supraspinatsu and biceps tendon L PT-OP-J Posture/Palpation/Skin Start: 11/02/20 18:24 Freq: Status: Active Protocol: Document 02/06/21 13:48 [facility] (Rec: 02/06/21 15:29 [facility] [id number]) Posture Evaluation [facility] Postural Classification System Elbow Flexion Test 3 PT-OP-K Range of Motion Start: 11/02/20 18:24 Freq: Status: Active Protocol: Document 02/06/21 13:48 [facility] (Rec: 02/06/21 15:29 [facility] [id number]) Shoulder Goniometric Range of Motion Shoulder Left Active Flexion 143 Extension 63 Abduction 157 External Rotation at 90 degrees 58 Abduction External Rotation at 0 degrees Abduction 46 Internal Rotation Behind Back (text) T10 PT-OP-L Special Tests Start: 11/02/20 18:24 Freq: Status: Active Protocol: Document 11/03/20 16:51 [facility] (Rec: 11/03/20 18:28 [facility] [id number]) Special Tests Shoulder Special Tests Sulcus Test Results neg L Gonzalez Charly Impingement Test Results positive L Empty Can Test Results positive L AC Joint Compression Test Results mild pain L PT-OP-M Strength Start: 11/02/20 18:24 Freq: Status: Active Protocol: Document 02/06/21 13:48 [facility] (Rec: 02/06/21 15:29 [facility] [id number]) Shoulder Strength Shoulder Manual Muscle Testing Right Flexion 5 Normal Extension 5 Normal Abduction (C5) 5 Normal External Rotation 5 Normal Internal Rotation 5 Normal Horizontal Abduction 5 Normal Horizontal Adduction 5 Normal Left Flexion 5 Normal Extension 4+ Good+ Abduction (C5) 5 Normal Adduction 5 Normal External Rotation 4+ Good+ Internal Rotation 5 Normal Horizontal Abduction 3+ Fair+ Horizontal Adduction 5 Normal Comments pain w/ext & Habd PT-OP-T Assessment and Plan Start: 11/02/20 18:24 Freq: Status: Active Protocol: Document 04/27/21 15:38 [facility] (Rec: 04/27/21 15:39 [facility] [id number]) Physical Therapy Assessment Assessment Summary Assessment Pt made excellent progress w/ PT w/much less pain and less activtieis that inc pain. He cancelled his last scheduled appt by televox and when called re: rescehduling and left message, pt did not call back. At this time DC PT d/t no longer attending Physical Therapy Plan Discharge Physical Therapy Discharge Reasons No Longer Attending PT
== END 2021-05-30 08:46 ==
LOC: PHYS 14:30
PROVIDERS: PCP Family Medicine
DX: M25.512 Pain in left shoulder (principal); G89.29 Other chronic pain; R53.1 Weakness; R29.3 Abnormal posture
CPT/HCPCS: 97110; 97140; 97162; 97530; 97535

== ENCOUNTER → 2025-01-21 14:28 | Outpatient (CLI) | payer MEDICARE, OTHER, SELFPAY ==
[2025-01-21 15:05] LABS: Add Manual Diff / Slide Review NO; Hematocrit 39.2 % (41-53); Hemoglobin 13.6 g/dL (13.5-17.5); Lymphocytes Absolute Auto 1800 /uL (1100-4500); Mean Corpuscular HGB Conc 34.6 % (30-36); Mean Corpuscular Hemoglobin 29.9 PG (26-34); Mean Corpuscular Volume 86.5 fL (80-100); Platelet Count 334 X10^3/uL (150-400)
[2025-01-21 15:14] LABS: Alanine Aminotransferase 19 IU/L (<50); Albumin 4.7 g/dL (3.5-5.0); Albumin Globulin Ratio 1.5 (1.0-2.8); Alkaline Phosphatase 85 U/L (38-126); Blood Urea Nitrogen 31 mg/dL (9-20); Calcium 9.6 mg/dL (8.4-10.2); Carbon Dioxide 23 mmol/L (22-32); Chloride 105 mmol/L (98-107); Estimated Glomerular Filt Rate 36 mL/min (>60); Globulin 3.1 g/dL (1.7-4.1); Glucose 91 mg/dL (70-99); HEMOLYSIS < 15 (0-50); Potassium 5.3 mmol/L (3.4-5.1); Sodium 138 mmol/L (137-145); Total Protein 7.8 g/dL (6.3-8.2)
== END ==
LOC: LAB 14:30
PROVIDERS: PCP Registered Nurse; Referring Provider Registered Nurse; Visit Provider Registered Nurse
DX: D48.9 Neoplasm of uncertain behavior, unspecified (principal); I10 Essential (primary) hypertension
CPT/HCPCS: 36415; 80053; 85025

== ENCOUNTER → 2025-02-23 13:05 | Outpatient (CLI) | payer MEDICARE, OTHER, SELFPAY ==
--- NOTE | 2025-02-23 13:07 | DI.MRI.S_ITS ---
PROCEDURE: MR PELVIC PROSTATE PROTOCOL INDICATIONS: 74 y/o M w/ elevated PSA, please eval TECHNIQUE: Coronal HASTE, axial T1 FSE with fat saturation, 3-plane nonbreath-hold T2 FSE. After the administration of contrast, dynamic axial, delayed axial and coronal VIBE or 2-D FLASH with fat saturation through the pelvis. Diffusion weighted imaging and ADC was performed. COMPARISON: None. FINDINGS: Image quality: Diffusion weighted and dynamic contrast enhanced images are diagnostic. Prostate: Gland size is 4.3 x 5.7 x 5.1 cm; ellipsoid gland volume is 65 mL. Given PSA of 6.75, PSA density is 0.10. Nodular hypertrophy of the transition zone and partial effacement of the periphery. There is an extruded nodule at the left apex. Lesion 1: Location: Left posterior peripheral zone at the gland apex seen best on coronal series 6, image 16 and axial series 5, image 19. This is also better seen on diffusion weighting series 25, image 17. Size: 0.6 cm. T2W signal: Moderately hypointense DWI signal: Mildly hyperintense ADC signal: Mildly hypointense Enhancement: Yes Extracapsular extension: No PI-RADS score: Three Genitourinary system: Bladder wall thickness is normal. Distal ureters are non distended. Bowel and peritoneum: Extensive sigmoid colon diverticulosis. Inferior small bowel loops are normal. No free fluid in the pelvis. No pathologic free pelvic fluid. Inferior colon and small bowel loops are normal in caliber. Nodes and vessels: No pelvic or inguinal adenopathy by size criteria. Iliac vessels are normal in caliber. Soft tissues: Surgical change of prior right orchiectomy. No inguinal hernias. Tiny fat containing umbilical hernia partially imaged. Bones: Marrow demonstrates normal overall signal, without lesions to suggest metastases. IMPRESSION: Subcentimeter PI-RADS three lesion in the left posterior peripheral zone at the gland apex. BPH. No pelvic lymphadenopathy by size criteria. No aggressive osseous abnormality. Dictated by: Lucila Troncoso M.D. on 02/24/2025 at 11:30 Approved by: Lucila Troncoso M.D. on 02/24/2025 at 11:44
== END ==
LOC: MRI 13:06
PROVIDERS: PCP Registered Nurse; Referring Provider Urology; Visit Provider Urology
DX: N40.0 Benign prostatic hyperplasia without lower urinary tract symptoms (principal); N42.9 Disorder of prostate, unspecified; K57.30 Diverticulosis of large intestine without perforation or abscess without bleeding; R97.20 Elevated prostate specific antigen [PSA]
CPT/HCPCS: 72197; A9579